=== PATIENT | male | born 1970 | race Caucasian/White ===

== ENCOUNTER 2017-04-28 12:16 | Emergency (ER) | payer BC ==
--- NOTE | 2017-04-28 14:29 | UC ---
General HPI - HPI Summary HPI Summary: Tick removed 24 hours ago that was likely attached for 24-36 hours attached to left side of his back - History of Current Complaint Chief Complaint: UCSkin Stated Complaint: TICK BITE Time Seen by Provider: 04/28/17 14:21 Hx Obtained From: Patient Onset/Duration: Sudden Onset, Lasting Days, Still Present Timing: Constant Onset Severity: Mild Current Severity: Mild - Allergy/Home Medications Allergies/Adverse Reactions: Allergies Allergy/AdvReac Type Severity Reaction Status Date / Time Banana AdvReac Intermediate Vomiting Verified 04/28/17 14:32 Home Medications: Home Medications Diazepam TAB(*) [Valium TAB(*)] 10 mg PO Q8H PRN 04/28/17 [History Confirmed ] Oxycodone TAB(NF) [Oxycodone HCl 10 MG] 10 mg PO Q6H PRN 04/28/17 [History Confirmed 04/28/17] PMH/Surg Hx/FS Hx/Imm Hx Previously Healthy: No Cardiovascular History: Hypertension Psychological History: Anxiety, Bipolar Disorder - Surgical History Surgical History: Yes Surgery Procedure, Year, and Place: ACL repair, fx skull - Family History Known Family History: Positive: None - Social History Occupation: Employed Full-time Lives: With Family Alcohol Use: Weekly Substance Use Type: Marijuana Substance Use Comment - Amount & Last Used: DAILY, LAST TIME 06/03 Smoking Status (MU): Never Smoked Tobacco When Did the Patient Quit Smoking/Using Tobacco: 20 YEARS AGO - Immunization History Most Recent Influenza Vaccination: none Most Recent Tetanus Shot: 2011 Most Recent Pneumonia Vaccination: none Review of Systems Constitutional: Negative Skin: Other - upper left posterior shoulder with partially removed tick Eyes: Negative ENT: Negative Respiratory: Negative Cardiovascular: Negative Gastrointestinal: Negative Genitourinary: Negative Motor: Negative Neurovascular: Negative Musculoskeletal: Negative Neurological: Negative Psychological: Negative Is Patient Immunocompromised?: No All Other Systems Reviewed And Are Negative: Yes Physical Exam Triage Information Reviewed: Yes Appearance: Well-Appearing, No Pain Distress, Well-Nourished Vital Signs Reviewed: Yes Eye Exam: Normal Eyes: Positive: Conjunctiva Clear ENT Exam: Normal ENT: Positive: Normal ENT inspection, Hearing grossly normal, Pharynx normal. Negative: Trismus, Muffled voice, Hoarse voice, Dental tenderness, Sinus tenderness Dental Exam: Normal Dental: Positive: Percussion Tenderness @ Neck exam: Normal Neck: Positive: Supple, Nontender, No Lymphadenopathy Respiratory Exam: Normal Respiratory: Positive: Chest non-tender, No respiratory distress, No accessory muscle use Cardiovascular Exam: Normal Cardiovascular: Positive: RRR, Pulses Normal, Brisk Capillary Refill Musculoskeletal Exam: Normal Musculoskeletal: Positive: Strength Intact, ROM Intact, No Edema Neurological Exam: Normal Neurological: Positive: Alert, Muscle Tone Normal Psychological Exam: Normal Skin Exam: Normal Course/Dx - Course Course Of Treatment: soap and water wash doxycycline times one dose now follow with pcp prn - Differential Dx - Multi-Symptom Provider Diagnoses: Tck Bite with Lyme PEP Discharge - Discharge Plan Condition: Stable Disposition: HOME Prescriptions: Doxycycline (Monohydrate) [Doxycycline Monohydrate] 200 mg PO ONCE #2 cap Patient Education Materials: Tick Bite (ED) Referrals: Martin Owens DO [Primary Care Provider] -
[2017-04-28 14:38] VITALS: BP 155/91
== END 2017-04-28 14:40 | disposition home or self-care (01) ==
LOC: UCCORT 12:16
DX: S20.462A Insect bite (nonvenomous) of left back wall of thorax, initial encounter (principal); W57.XXXA Bitten or stung by nonvenomous insect and other nonvenomous arthropods, initial encounter; Y93.9 Activity, unspecified; Y92.9 Unspecified place or not applicable; I10 Essential (primary) hypertension; F41.9 Anxiety disorder, unspecified; F31.9 Bipolar disorder, unspecified; F12.90 Cannabis use, unspecified, uncomplicated; Z87.891 Personal history of nicotine dependence
CPT/HCPCS: 99212; G0463

== ENCOUNTER 2017-06-19 11:33 | Emergency (ER) | payer BC ==
[2017-06-19 12:11] VITALS: BP 129/85
--- NOTE | 2017-06-19 12:57 | UC ---
Throat Pain/Nasal [place] HPI - HPI Summary HPI Summary: Pt presents with c/o sore throat X 5 days, no improvement since onset. Pt states that he feels like "garbage" - History of Current Complaint Chief Complaint: UCRespiratory Stated Complaint: SORE THROAT Time Seen by Provider: 06/19/17 12:13 Hx Obtained From: Patient Onset/Duration: Gradual Onset, Lasting Days, Still Present Severity: Moderate Pain Intensity: 0 Pain Scale Used: 0-10 Numeric Associated Signs & Symptoms: Positive: Dysphagia - Epiglottits Risk Factors Epiglottis Risk Factors: Negative - Allergies/Home Medications Allergies/Adverse Reactions: Allergies Allergy/AdvReac Type Severity Reaction Status Date / Time banana Allergy Vomiting Verified 06/19/17 12:03 Home Medications: Home Medications Atorvastatin* [Lipitor 10 MG*] 10 mg PO DAILY 06/19/17 [History Confirmed ] Levothyroxine TAB* [Synthroid 25 MCG TAB*] 25 mcg PO DAILY 06/19/17 [History Confirmed 06/19/17] Losartan TAB* [Cozaar TAB*] 25 mg PO DAILY 06/19/17 [History Confirmed 06/19/17] amLODIPine TAB* [Norvasc 5 mg TAB*] 10 mg PO DAILY 06/19/17 [History Confirmed 06/19/17] PMH/Surg Hx/FS Hx/Imm Hx Previously Healthy: Yes - Surgical History Surgical History: Yes Surgery Procedure, Year, and Place: ACL repair, fx skull - Family History Known Family History: Positive: None - Social History Occupation: Employed Full-time Lives: With Family Alcohol Use: Rare Substance Use Type: Marijuana Substance Use Comment - Amount & Last Used: DAILY, LAST TIME 06/03 Smoking Status (MU): Never Smoked Tobacco Have You Smoked in the Last Year: No When Did the Patient Quit Smoking/Using Tobacco: 20 YEARS AGO - Immunization History Most Recent Influenza Vaccination: none Most Recent Tetanus Shot: 2011 Most Recent Pneumonia Vaccination: none Review of Systems Constitutional: Fever, Chills, Fatigue Skin: Negative Eyes: Negative ENT: Sore Throat Respiratory: Negative Cardiovascular: Negative Gastrointestinal: Negative Genitourinary: Negative Motor: Negative Neurovascular: Negative Musculoskeletal: Negative Neurological: Negative Psychological: Negative Is Patient Immunocompromised?: No All Other Systems Reviewed And Are Negative: Yes Physical Exam Triage Information Reviewed: Yes Appearance: Ill-Appearing Vital Signs: Initial Vital Signs Temp 98.1 F 06/19/17 12:02 Pulse 79 06/19/17 12:02 Resp 16 06/19/17 12:02 BP 129/85 06/19/17 12:02 Pulse Ox 98 06/19/17 12:02 Vital Signs Reviewed: Yes Eye Exam: Normal ENT Exam: Other ENT: Positive: Pharyngeal erythema Dental Exam: Normal Neck exam: Normal Respiratory Exam: Normal Cardiovascular Exam: Normal Musculoskeletal Exam: Normal Neurological Exam: Normal Psychological Exam: Normal Skin Exam: Normal Throat Pain/Nasal Course/Dx - Differential Dx/Diagnosis Differential Diagnosis/HQI/PQRI: Influenza, Pharyngitis, Tonsillitis, URI Provider Diagnoses: Pharyngitis Discharge - Discharge Plan Condition: Stable Disposition: HOME Prescriptions: Penicillin VK 500 MG TAB(NF) [Penicillin VK 500 mg Tab] 500 mg PO Q12H #20 tab Patient Education Materials: Pharyngitis (ED) Referrals: Martin Owens DO [Primary Care Provider] - If Needed
== END 2017-06-19 12:46 | disposition home or self-care (01) ==
LOC: UCCORT 11:33
DX: J02.9 Acute pharyngitis, unspecified (principal)
CPT/HCPCS: 87651; 99212; G0463

== ENCOUNTER 2017-09-03 15:07 | Emergency (ER) | payer BC ==
--- OUTSIDE RECORDS SUMMARY | 2017-09-03 15:38 | XMS REPORT ---
:1970 External Reference #:[id number] Author Organization [facility] Address [address] [address] Phone [phone] Care Team Providers Name Role Phone Martin Owens DO Primary Care Physician Unavailable Payers Type Date Identification Numbers Payment Provider Subscriber Commercial Policy Number: [id number] [facility] Naya Salomon PayID: [id number] [address] [place] [id number] Problems Date Description Provider Status Onset: 04/19/2014 Low back pain Paulino Rouse M.D. Active Onset: 05/04/2014 Benign essential hypertension Active Onset: 05/04/2014 Pure hypercholesterolemia Active Onset: 05/04/2014 Peptic reflux disease Active Onset: 01/31/2012 Gastroesophageal reflux disease Martin Owens DO Active Onset: 01/31/2012 Mixed hyperlipidemia Martin Owens DO Active Onset: 01/31/2012 Essential hypertension Martin Owens DO Active Family History Date Family Member(s) Problem(s) Comments General Heart Disease General Hypertension General Stroke General Cancer General Rheumatoid Arthritis Father Stroke Father Rheumatoid Arthritis Mother Cancer Mother Rheumatoid Arthritis Social History Type Date Description 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 consumes alcohol Recreational Drug Use Current Drug User Smoking Patient has never smoked Recreational Drug Use Regularly uses Marijuana Exercise Type/Frequency Exercises sporadically Allergies, Adverse Reactions, Alerts Date Description Reaction Status Severity Comments 02/05/2014 NKDA active Medications Medication Date Status Form Strength Qnty SIG Indications Ordering Provider Levothyroxine 07/09/ Active Tablets 50mcg 90tab 1 by mouth Marsha Owens 2018 s every day DO Martin Diazepam 01/30/ Active Tablets 10mg 60tab /2 to 1 by Roman 2016 s mouth up to Martin, 2 times a DO day as needed muscle spasm Oxycodone HCL 01/22/ Active Tablets 10mg 180ta 1 by mouth Roman 2015 bs every 4 Martin, hours as DO needed severe pain Amlodipine 10/23/ Active Tablets 5mg 90tab 1 by mouth Roman Besylate 2015 s every day Martin, DO Losartan / Active Tablets 100mg 90tab 1 by mouth Unknown Potassium 0000 s every day Ventolin HFA / Active Aerosol 108(90Bas 1unit 2 puffs by Unknown 0000 e) s mouth four mcg/Act times a day as needed Omeprazole / Active Capsules 20mg 1 by mouth Unknown 0000 [address] every day as needed Ibuprofen / Active Capsules 200mg 2 po q 4 Unknown 0000 hours.as needed Tylenol / Active Tablets 325mg as needed Unknown 0000 Amphetamine-Dex / Active Caps ER 30mg [place], troamphet ER 0000 24HR MD Vasu Atorvastatin / Active Tablets 20mg take 1 Unknown Calcium 0000 tablet by mouth once daily Triamcinolone 12/29/ Hx Cream 0.1% 80uni apply to Roman Acetandrea 2015 - ts affected Martin, 07/23/ area on the DO 2017 trunk or extremities 2-3 times a day x 2 weeks Adderall 10/23/ Hx Tablets 5mg 60tab 1 po bid Roman 2015 - s Martin, 07/29/ DO 2018 Percocet / Hx Tablets 5-325mg 60tab 1-2 by mouth Unknown 0000 - s every 4 to 6 15/ hours as 2018 needed pain Valium / Hx Tablets 5mg 2tabs 1-2 po as Unknown 0000 - needed for 07/30/ spasm 2018 Atorvastatin / Hx Tablets 20mg 90tab take 1 Unknown Calcium 0000 - s tablet at 02/11/ bedtime 2013 Vital Signs Date Vital Result Comment 08/07/2017 Height 72 inches 6'0" Weight 170.00 lb Heart Rate 74 /min BP Systolic Sitting 122 mmHg BP Diastolic Sitting 74 mmHg Respiratory Rate 16 /min Pain Level 2 BMI (Body Mass Index) 23.1 kg/m2 04/19/2014 Height 72 inches 6'0" Weight 188.00 lb Heart Rate 76 /min BP Systolic Sitting 160 mmHg BP Diastolic Sitting 160 mmHg Pain Level 2 ack/mik hips BMI (Body Mass Index) 25.5 kg/m2 02/11/2014 Height 72 inches 6'0" Weight 186.00 lb Heart Rate 70 /min BP Systolic Sitting 130 mmHg BP Diastolic Sitting 80 mmHg Pain Level 0 BMI (Body Mass Index) 25.2 kg/m2 Results Test Date Test Result H/L Range Note CBC Auto Diff 06/15/2013 White Blood Count 6.9 10^3/uL 4.8-10.8 Red Blood Count 3.64 10^6/uL Low 4.0-5.4 Hemoglobin 8.6 g/dL Low 14.0-18.0 Hematocrit 28 % Low 42-52 Mean Corpuscular Volume 76 fL Low 80-94 Mean Corpuscular Hemoglobin 24 pg Low 27-31 Mean Corpuscular HGB Conc 31 g/dL 31-36 Red Cell Distribution Width 16 % High 10.5-15 Platelet Count 301 10^3/uL 150-450 Mean Platelet Volume 7 um3 Low 7.4-10.4 Abs Neutrophils 4.5 10^3/uL 1.5-7.7 Abs Lymphocytes 1.3 10^3/uL 1.0-4.8 Abs Monocytes 0.8 10^3/uL 0-0.8 Abs Eosinophils 0.2 10^3/uL 0-0.6 Abs Basophils 0.1 10^3/uL 0-0.2 Abs Nucleated RBC 0 10^3/uL Granulocyte % 65.6 % 38-83 Lymphocyte % 19.1 % Low 25-47 Monocyte % 11.5 % High 1-9 Eosinophil % 3.0 % 0-6 Basophil % 0.8 % 0-2 Nucleated Red Blood Cells % 0 Comp Metabolic Panel 06/15/2013 Sodium 135 mmol/L 133-145 Potassium 4.7 mmol/L 3.7-5.6 Chloride 102 mmol/L 101-111 Co2 Carbon Dioxide 27 mmol/L 22-32 Anion Gap 6 mmol/L 2-11 Glucose 81 mg/dL 70-100 Blood Urea Nitrogen 10 mg/dL 6-24 Creatinine 0.72 mg/dL 0.67-1.17 BUN/Creatinine Ratio 13.9 8-20 Calcium 9.3 mg/dL 8.6-10.3 Total Protein 6.8 g/dL 6.4-8.9 Albumin 4.3 g/dL 3.2-5.2 Globulin 2.5 g/dL 2-4 Albumin/Globulin Ratio 1.7 1-3 Total Bilirubin 0.40 mg/dL 0.2-1.0 Alkaline Phosphatase 62 U/L 34-104 Alt 28 U/L 7-52 Ast 22 U/L 13-39 Egfr Non- 118.1 >60 Egfr 151.8 >60 1 1 Because ethnic data is not always readily available, this report includes an eGFR for both -Americans and non- Americans. The National Kidney Disease Education Program (NKDEP) does not endorse the use of the MDRD equation for patients that are not between the ages of 18 and 70, are , have extremes of body size, muscle mass, or nutritional status, or are non- or non-. According to the National Kidney Foundation, irrespective of diagnosis, the stage of the disease is based on the level of kidney function: Stage Description GFR(mL/min/1.73 m(2)) 1 Kidney damage with normal or decreased GFR 90 2 Kidney damage with mild decrease in GFR 60-89 3 Moderate decrease in GFR 30-59 4 Severe decrease in GFR 15-29 5 Kidney failure <15 (or dialysis) Procedures Description No Information Encounters Type Date Location Provider CPT E/M Dx Office Visit 04/19/2014 [facility] Paulino Rouse M.D. 47702 724.2 9:00a Of [facility] Office Visit 02/11/2014 [facility] Paulino Rouse M.D. 79387 336.0 2:15p Of [facility] Office Visit 01/08/2013 Faisal Mcgraw,raheem Bush 12937 780.2 12:38p [facility] M.D. 847.2 280.9 401.9 Office Visit 01/07/2013 12:37p raheem Montelongo 92352 847.2 Chanel Cano M.D. 280.9 401.9 780.2 Plan of Care 08/07/2017 - Rudy Vera M.D.M72.2 Plantar fascial fibromatosisNew Xrays: MRI Lower Extremity Left W/OFollow up:after testing is completed
[2017-09-03 15:41] VITALS: BP 141/89
--- NOTE | 2017-09-03 15:47 | UC ---
UC General HPI - HPI Summary HPI Summary: pt is c/o a 3 day hx sore throat, cough, chest congestion and some sob. no fever. started to self tx with left over pcn for 2.5 days(has the full prescription). used an albuterol mdi with no relief. - History of Current Complaint Stated Complaint: FLU SYMPTOMS Time Seen by Provider: 09/03/17 15:39 Hx Obtained From: Patient Onset/Duration: Gradual Onset Timing: Constant Associated Signs & Symptoms: Positive: Cough, SOB. Negative: Fever - Allergy/Home Medications Allergies/Adverse Reactions: Allergies Allergy/AdvReac Type Severity Reaction Status Date / Time banana Allergy Vomiting Verified 09/03/17 15:37 PMH/Surg Hx/FS Hx/Imm Hx Endocrine History: Dyslipidemia Cardiovascular History: Hypertension - Surgical History Surgical History: Yes Surgery Procedure, Year, and Place: RT KNEE ACL AND MENISCUS REPAIR, fx skull, RT SHOULDER RTC REPAIR - Family History Known Family History: Positive: Cardiac Disease, Other - [place] - Social History Occupation: Employed Full-time Lives: With Family Alcohol Use: Rare Substance Use Type: Marijuana Substance Use Comment - Amount & Last Used: DAILY, LAST TIME 06/03 Smoking Status (MU): Never Smoked Tobacco Have You Smoked in the Last Year: No When Did the Patient Quit Smoking/Using Tobacco: 20 YEARS AGO - Immunization History Most Recent Influenza Vaccination: none Most Recent Tetanus Shot: 2011 Most Recent Pneumonia Vaccination: none Vaccination Up to Date: Yes Review of Systems Constitutional: Negative Skin: Negative Eyes: Negative ENT: Sore Throat Respiratory: Shortness Of Breath, Cough Cardiovascular: Negative Gastrointestinal: Negative Genitourinary: Negative Motor: Negative Neurovascular: Negative Musculoskeletal: Negative Neurological: Negative Psychological: Negative Is Patient Immunocompromised?: No All Other Systems Reviewed And Are Negative: Yes Physical Exam Triage Information Reviewed: Yes Appearance: Well-Appearing Vital Signs Reviewed: Yes Eyes: Positive: Conjunctiva Clear ENT: Positive: Pharyngeal erythema, TMs normal. Negative: Nasal congestion, Nasal drainage Neck: Positive: Supple, Tenderness @ - peritonsilar nodes with mild enlargement Respiratory: Positive: Lungs clear, No respiratory distress, Decreased breath sounds, Other: - cough is congested Cardiovascular: Positive: RRR, No Murmur Abdomen Description: Positive: Nontender, No Organomegaly, Soft Bowel Sounds: Positive: Present Musculoskeletal: Positive: ROM Intact Neurological: Positive: Alert Psychological: Positive: Age Appropriate Behavior Skin Exam: Normal Diagnostics - Radiology No standard instances Xray Interpretation: No Acute Changes Radiology Interpretation Completed By: Radiologist - CXR(see report) Course/Dx - Course Course Of Treatment: no strep screen, pt already took 2.5 days of pcn. cxr=no infiltrate. pt to finish the full course of his pcn prescription. script from for 10 days. - Differential Dx - Multi-Symptom Provider Diagnoses: pharyngitis. cough Discharge - Sign-Out/Discharge Documenting (check all that apply): Discharge/Admit/Transfer - Discharge Plan Condition: Stable Disposition: HOME Patient Education Materials: Pharyngitis (ED) Referrals: Martin Owens DO [Primary Care Provider] - 7 Days Additional Instructions: USE YOUR ALBUTEROL INHALER 2 PUFFS EVERY 6 HOURS. FINISH THE 10 DAY SUPPLY OF PENICILLIN - Billing Disposition and Condition Condition: STABLE Disposition: HOME
--- NOTE | 2017-09-03 16:33 | RAD ---
INDICATION: Productive cough, shortness of breath. History of obstructive lung disease. Former tobacco use. COMPARISON: June 04, 2013 TECHNIQUE: Dual energy PA and routine lateral views of the chest were obtained. REPORT: Elevated lung volumes and rarefaction of the interstitial markings. No focal pulmonary lesion, compelling alveolar consolidation, pleural effusion, pneumothorax. The heart, pulmonary vasculature, and mediastinal contours are unremarkable. Unremarkable soft tissue contours and osseous structures. IMPRESSION: Stigmata of obstructive lung disease. No acute pulmonary or cardiac process evident.
== END 2017-09-03 16:47 | disposition home or self-care (01) ==
LOC: UCCORT 15:07
DX: J02.9 Acute pharyngitis, unspecified (principal); R05 Cough; I10 Essential (primary) hypertension; Z87.891 Personal history of nicotine dependence
CPT/HCPCS: 71046; 99211; G0463

== ENCOUNTER 2017-09-11 17:51 | Emergency (ER) | payer BC ==
[2017-09-11 19:24] VITALS: BP 127/91
--- NOTE | 2017-09-11 19:41 | ED ---
Throat Pain/Nasal Congestion - HPI Summary HPI Summary: 47 yr old with sore throat, left ear pain, post nasal drip, sinus pressure. onset of symptoms over a week ago. He is having a productive cough of yellow sputum. Denies SOB. Denies NVD, dysuria, frequency, denies rash, joint pain. No other complaints. - History of Current Complaint Chief Complaint: UCGeneralIllness Time Seen by Provider: 09/11/17 19:26 - Allergies/Home Medications Allergies/Adverse Reactions: Allergies Allergy/AdvReac Type Severity Reaction Status Date / Time banana Allergy Vomiting Verified 09/11/17 19:12 PMH/Surg Hx/FS Hx/Imm Hx Endocrine/Hematology History: Reports: Hx Thyroid Disease, Hx Anemia - R/T RECENT ILLNESS Denies: Hx Diabetes Cardiovascular History: Reports: Hx Hypertension - MEDICATED Denies: Hx Pacemaker/ICD Respiratory History: Reports: Other Respiratory Problems/Disorders - RESCUE INHALER FOR EXERCISE INDUCED SOB Comment Only: Hx Asthma - INHALER FOR DECREASED LUNG FUNCTION- EX-SMOKER GI History: Reports: Hx Gastroesophageal Reflux Disease - CONTROL WITH MEDICATION Musculoskeletal History: Reports: Other Musculoskeletal History - HX OF COMPRESSED VERTEBRAE LOWER BACK Sensory History: Reports: Hx Contacts or Glasses - GLASSES Denies: Hx Hearing Aid Opthamlomology History: Reports: Hx Contacts or Glasses - GLASSES Neurological History: Reports: Other Neuro Impairments/Disorders - L-SPINE DISC TOUBLE Psychiatric History: Denies: Hx Panic Disorder - Surgical History Surgery Procedure, Year, and Place: RT KNEE ACL AND MENISCUS REPAIR, fx skull, RT SHOULDER RTC REPAIR Hx Anesthesia Reactions: No - Immunization History Date of Tetanus Vaccine: Unsure Date of Influenza Vaccine: no Infectious Disease History: No Infectious Disease History: Denies: Hx Clostridium Difficile, Hx Hepatitis, Hx Human Immunodeficiency Virus (HIV), Hx of Known/Suspected MRSA, Hx Shingles, Hx Tuberculosis, Hx Known/ Suspected VRE, Hx Known/Suspected VRSA, History Other Infectious Disease, Traveled Outside the [place] in Last 30 Days - Family History Known Family History: Positive: None, Cardiac Disease, Other - [place] - Social History Alcohol Use: Rare Substance Use Type: Reports: Marijuana Substance Use Comment - Amount & Last Used: OCCASIONAL Smoking Status (MU): Former Smoker Have You Smoked in the Last Year: No Review of Systems Constitutional: Negative Positive: Sore Throat, Ear Ache, Nasal Discharge Positive: Cough All Other Systems Reviewed And Are Negative: Yes Physical Exam Triage Information Reviewed: Yes Vital Signs On Initial Exam: Initial Vitals Temp Pulse Resp BP Pulse Ox 98.6 F 71 17 127/91 97 09/11/17 19:14 09/11/17 19:14 09/11/17 19:14 09/11/17 19:14 09/11/17 19:14 Vital Signs Reviewed: Yes Appearance: Positive: Well-Appearing, No Pain Distress Skin: Positive: Warm, Skin Color Reflects Adequate Perfusion Head/Face: Positive: Normal Head/Face Inspection Eyes: Positive: EOMI ENT: Positive: Normal ENT inspection, Pharyngeal erythema, TM red - left with effusion, Sinus tenderness Neck: Positive: Supple, Nontender Respiratory/Lung Sounds: Positive: Clear to Auscultation, Breath Sounds Present Cardiovascular: Positive: RRR. Negative: Murmur Abdomen Description: Positive: Nontender Musculoskeletal: Positive: Strength/ROM Intact Neurological: Positive: Sensory/Motor Intact, Alert, Oriented to Person Place, Time, CN Intact II-III Psychiatric: Positive: Normal - Delmy Coma Scale Best Eye Response: 4 - Spontaneous Best Motor Response: 6 - Obeys Commands Best Verbal Response: 5 - Oriented Coma Scale Total: 15 Diagnostics - Vital Signs Vital Signs Temp Pulse Resp BP Pulse Ox 09/11/17 19:14 98.6 F 71 17 127/91 97 - Laboratory Lab Statement: Any lab studies that have been ordered have been reviewed, and results considered in the medical decision making process. EENT Course/Dx - Course Course Of Treatment: 47 yr old with sinusitis and left OM. Rx with augmentin. DC home. - Diagnoses Provider Diagnoses: Sinusitis, Otitis media Discharge - Sign-Out/Discharge Documenting (check all that apply): Discharge/Admit/Transfer - Discharge Plan Condition: Good Disposition: HOME Prescriptions: Amoxicillin/Clavulanate TAB* [Augmentin TAB 875*] 875 mg PO BID #20 tab Patient Education Materials: Sinusitis (ED), Ear Infection (ED), Hypertension ( ED) Referrals: Martin Owens DO [Primary Care Provider] - 2 Days - Billing Disposition and Condition Condition: GOOD Disposition: HOME
== END 2017-09-11 19:45 | disposition home or self-care (01) ==
LOC: UCCORT 17:51
DX: J32.9 Chronic sinusitis, unspecified (principal); H66.92 Otitis media, unspecified, left ear; I10 Essential (primary) hypertension; J45.909 Unspecified asthma, uncomplicated; Z87.891 Personal history of nicotine dependence; K21.9 Gastro-esophageal reflux disease without esophagitis
CPT/HCPCS: 99212; G0463

== ENCOUNTER 2017-10-13 10:47 | Emergency (ER) | payer BC ==
--- OUTSIDE RECORDS SUMMARY | 2017-10-13 11:00 | XMS REPORT ---
:1970 External Reference #:[id number] Author Organization [facility] Address [address] [address] Phone [phone] Care Team Providers Name Role Phone Martin Owens DO Primary Care Physician Unavailable Payers Type Date Identification Numbers Payment Provider Subscriber Commercial Policy Number: [id number] [facility] Naya Salomon PayID: [id number] [address] [address] [place] [address] Problems Date Description Provider Status Onset: 04/19/2014 [...] Martin Diazepam 01/30/ Active Tablets 10mg 60tab 1/2 to 1 by Roman 2016 s mouth [...] po as Unknown 0000 - needed for spasm 2018 Atorvastatin / Hx Tablets 20mg 90tab take 1 Unknown Calcium 0000 - s tablet at 02/11/ bedtime 2013 Vital Signs Date Vital Result Comment 09/18/2017 Height 72 inches 6'0" Weight 170.00 lb BP Systolic Sitting 126 mmHg BP Diastolic Sitting 76 mmHg Respiratory Rate 16 /min Pain Level 3 BMI (Body Mass Index) 23.1 kg/m2 08/07/2017 Height 72 inches 6'0" Weight 170.00 [...] 5 Kidney failure <15 (or dialysis) Procedures Date CPT Code Description Status 08/27/2017 55634 MRI Lower Extremity W0 Contrast Completed 08/27/2017 68377 MRI Lower Extremity W0 Contrast Completed Encounters Type Date Location Provider CPT E/M Dx Office Visit 09/18/2017 [facility] Vera, 62439 M72.2 11:00a [facility] CAMILO Holden M.D. Office Visit 08/07/2017 [facility], 75386 M72.2 1:00p Obdulio Holden M.D. Office Visit 04/19/2014 [facility] Paulino Rouse M.D. 14766 724.2 9:00a Of [facility] Office Visit 02/11/2014 [facility] Paulino Rouse M.D. 93241 336.0 2:15p Of [facility] Paulino Bush [address] 780.2 12:38p Hospitalists Tristen Cano 847.2 280.9 401.9 Office Visit 01/07/2013 12:37p [facility], Paulino Bush [address]36 847.2 Hospitalists Tristen Cano 280.9 401.9 780.2 Plan of Care 09/18/2017 - Rudy Vera M.D.M72.2 Plantar fascial fibromatosisNew Therapy: Rehab ReferralFollow up:As needed
[2017-10-13 11:07] VITALS: BP 137/88
--- NOTE | 2017-10-13 11:54 | UC ---
Upper Extremity HPI - HPI Summary HPI Summary: Patient to urgent care today with pain in his right arm also complains of some numbness and tingling. 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 patient denies chest pain, sob, no neuro deficits. Patient usually take Oxycodone 10 mg po prn for pain and has not taken pain medication at all - History of Current Complaint Hx Obtained From: Patient ?: No Onset/Duration: Sudden Onset, Lasting Days - 1 Severity Currently: Mild Pain Intensity: 0 Location Of Pain: Radiates To - no real pain parestesia right arm Aggravating Factor(s): Movement Alleviating Factor(s): Nothing Associated Signs And Symptoms: Positive: Negative Related History: Dominant Hand Right <Lianna Bueno - Last Filed: 10/13/17 12:06> <Sissy Novak - Last Filed: 10/13/17 12:16> - History of Current Complaint Chief Complaint: UCUpperExtremity Stated Complaint: RIGHT ARM NUMBNESS Time Seen by Provider: 10/13/17 11:43 - Allergies/Home Medications Allergies/Adverse Reactions: Allergies Allergy/AdvReac Type Severity Reaction Status Date / Time banana Allergy Vomiting Verified 10/13/17 11:04 Home Medications: Home Medications Dextroamphetamine/Amphetamine [Adderall Xr 30 mg Capsule] 30 mg PO DAILY PRN 05/02 [History Confirmed 10/13/17] PMH/Surg Hx/FS Hx/Imm Hx Previously Healthy: No Endocrine History: Hypothyroidism, Dyslipidemia Cardiovascular History: Hypertension Psychological History: Anxiety - Surgical History Surgical History: Yes Surgery Procedure, Year, and Place: RT KNEE ACL AND MENISCUS REPAIR, fx skull, RT SHOULDER RTC REPAIR. COLON SURGERY (HEMMORHOIDS) - Family History Known Family History: Positive: None, Cardiac Disease, Other - CA, CVA - Social History Occupation: Works From/At Home Lives: With Family Alcohol Use: Rare Substance Use Type: Marijuana Substance Use Comment - Amount & Last Used: OCCASIONAL Smoking Status (MU): Former Smoker Have You Smoked in the Last Year: No When Did the Patient Quit Smoking/Using Tobacco: 30+ years ago - Immunization History Most Recent Influenza Vaccination: none Most Recent Tetanus Shot: 2011 Most Recent Pneumonia Vaccination: none Vaccination Up to Date: Yes <Lianna Bueno - Last Filed: 10/13/17 12:06> Review of Systems Constitutional: Negative Skin: Negative Eyes: Negative ENT: Negative Respiratory: Negative Cardiovascular: Negative Gastrointestinal: Negative Genitourinary: Negative Motor: Negative Neurovascular: Negative Musculoskeletal: Arthralgia - right arm Neurological: Negative Psychological: Negative Is Patient Immunocompromised?: No All Other Systems Reviewed And Are Negative: Yes <Lianna Bueno - Last Filed: 10/13/17 12:06> Physical Exam Triage Information Reviewed: Yes Appearance: Well-Appearing, No Pain Distress, Well-Nourished Vital Signs: Initial Vital Signs Temp 98.7 F 10/13/17 11:00 Pulse 69 10/13/17 11:00 Resp 16 10/13/17 11:00 BP 137/88 10/13/17 11:00 Pulse Ox 100 10/13/17 11:00 Vital Signs Reviewed: Yes Eye Exam: Normal Eyes: Positive: Conjunctiva Clear ENT Exam: Normal ENT: Positive: Normal ENT inspection, Hearing grossly normal, Pharynx normal, TMs normal. Negative: Nasal congestion, Trismus, Muffled voice, Hoarse voice, Dental tenderness Dental Exam: Normal Neck exam: Normal Neck: Positive: Supple, Nontender, No Lymphadenopathy, Other: - no carotid bruit Respiratory Exam: Normal Respiratory: Positive: Chest non-tender, Lungs clear, Normal breath sounds, No respiratory distress, No accessory muscle use Cardiovascular Exam: Normal Cardiovascular: Positive: RRR, No Murmur, Pulses Normal, Brisk Capillary Refill Musculoskeletal Exam: Normal Musculoskeletal: Positive: Strength Intact, ROM Intact, No Edema Neurological Exam: Normal Neurological: Positive: Alert, Muscle Tone Normal, Fatigued Psychological Exam: Normal Skin Exam: Normal <Lianna Bueno - Last Filed: 10/13/17 12:06> Vital Signs: Initial Vital Signs Temp 98.7 F 10/13/17 11:00 Pulse 69 10/13/17 11:00 Resp 16 10/13/17 11:00 BP 137/88 10/13/17 11:00 Pulse Ox 100 10/13/17 11:00 <Sissy Novak - Last Filed: 10/13/17 12:16> Diagnostics - EKG Cardiac Rate: NL Cardiac Rhythm: Sinus: Normal - early replol-no change from 2012 Ectopy: None ST Segment: Normal <Lianna Bueno - Last Filed: 10/13/17 12:06> Upper Extremity Course/Dx - Course Course Of Treatment: d/c to home take usual pain med, to ed for change or worsening in symptoms follow with pcp - Differential Dx/Diagnosis Provider Diagnoses: paresthesia right arm, <Lianna Bueno - Last Filed: 10/13/17 12:06> Discharge - Sign-Out/Discharge Documenting (check all that apply): Discharge/Admit/Transfer - Billing Disposition and Condition Condition: STABLE Disposition: Home <Lianna Bueno - Last Filed: 10/13/17 12:06> - Billing Disposition and Condition Condition: STABLE Disposition: Home <Sissy Novak - Last Filed: 10/13/17 12:16> - Discharge Plan Condition: Stable Disposition: HOME Patient Education Materials: Paresthesia (ED), Arthralgia (ED) Referrals: Martin Owens DO [Primary Care Provider] - 1 Week Attestation Statement User Type: Provider - I was available for consult. This patient was seen by the [facility]. The patient was not presented to, seen by, or examined by me. -Tejal <Sissy Novak - Last Filed: 10/13/17 12:16>
== END 2017-10-13 12:08 | disposition home or self-care (01) ==
LOC: UCCORT 10:47
DX: R20.0 Anesthesia of skin (principal); I10 Essential (primary) hypertension; Z87.891 Personal history of nicotine dependence
CPT/HCPCS: 93005; 99211; G0463

== ENCOUNTER 2018-03-23 11:32 | Emergency (ER) | payer BC ==
--- OUTSIDE RECORDS SUMMARY | 2018-03-23 11:55 | XMS REPORT | Continuity of Care Document ---
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 Payers Type Date Identification Numbers Payment Provider Subscriber Effective: Policy Number: [id number] [facility] [employer] [place] [employer] 2013 PayID: [id number] [address] [address] [place] [address] Advance Directives Description No Information Available Problems Date Description Provider Status Onset: 01/31/2012 Gastroesophageal reflux disease Martin Owens DO Active Onset: 01/31/2012 Mixed hyperlipidemia Martin Owens DO Active Onset: 01/31/2012 Essential hypertension Martin Owens DO Active Onset: 12/18/2011 Low back pain Martin Owens DO Active Onset: 05/04/2014 Benign essential hypertension Active Onset: 05/04/2014 Pure hypercholesterolemia Active Onset: 05/04/2014 Peptic reflux disease Active Onset: 12/18/2011 Alcohol dependence Martin Owens DO Resolved Resolved: 07/09/2017 Family History Date Family Member(s) Problem(s) Comments General Alcoholism General Drug Addiction Father CT : (age 84 Father due to Stroke Years) Father Heart Disease Father Hypertension Father Hypercholesterolemia Mother Thyroid Disease Mother due to Cancer, Bladder () Mother Depression Mother due to Cancer, Lung () Paternal Grandmother Stroke Social History Type Date Description Comments Sex Unknown Education Highest Level Completed Master's Degree Marital Status Lives With Spouse 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 Tobacco Use Start: Unknown End: Former Cigarette Smoker Unknown ETOH Use 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 consumes wine ETOH Use 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 consumes beer Recreational Drug Use Regularly uses Marijuana Tobacco Use Start: Unknown End: Patient is a former smoker Unknown Allergies, Adverse Reactions, Alerts Description No Known Drug Allergies Medications Medication Date Status Form Strength Qnty SIG Indications Ordering Provider Protonix 02/27 Active Tablets 40mg 90tab [address] s every day Martin, DO Amoxicillin/Cla 02/27 Hx Tablets 875-125mg 14tab 1 by mouth R10.30 Owens, vulanate s twice a day x Chapis Salazar - 7 days DO 03/06 Hydrocortisone 01/21 Active Cream 2.5% 30gm apply to rectal area Martin, 2-3 times a DO day as needed for hemorrhoids Sildenafil 01/08 Active Tablets 100mg 3tabs 04/16 to 1 by N52.9 Owens, Citrate mouth every Martin, day as needed DO Ventolin HFA 07/09 Active Aerosol 108(90Bas 1unit 2 puffs every e) s 4 hours as Martin mcg/Act needed DO Levothyroxine 07/09 Active Tablets 50mcg 90tab 1 by mouth Owens, Sodium s every day Martin, DO Diazepam 01/30 Active Tablets 10mg 60tab /2 to 1 by Owens s mouth up to 2 Martin, times a day as DO needed muscle spasm Oxycodone HCL 01/22 Active Tablets 10mg 180ta 1 by mouth bs every 4 hours Martin, as needed DO severe pain Triamcinolone 12/29 Active Cream 0.1% 80gm apply to Acet affected area Martin, on the trunk DO or extremities 2-3 times a day x 2 weeks Amlodipine 10/23 Active Tablets 5mg 90tab 1 by mouth Owens, Besylate s every day Martin, DO Adderall 10/23 Active Tablets 5mg 60tab 1 po bid as Owens s needed Martin, Atorvastatin 07/02 Active Tablets 20mg 90tab 1 by mouth Owens, Calcium s every day Martin, DO Losartan 10/02 Active Tablets 100mg 90tab 1 by mouth Owens, Potassium /2013 s every day Martin, DO Levothyroxine 05/05 Hx Tablets 25mcg 90tab 1 by mouth Owens, Sodium s every day Martin, - DO 07/09 Amoxicillin 10/05 Hx Tablets 875mg 20tab 1 by mouth J02.9 Owens, s twice a day Martin, - DO 10/15 Lamotrigine 09/13 Hx Tablets 25mg 120ta 2 by mouth I10 bs twice a day Martin, - DO 07/09 Duloxetine HCL 08/[address] 20mg 15cap 1 by mouth Owens, Part s every other Martin, - day x 1 week, DO 08/23 then every day for 1-2 weeks, then stop. Duloxetine HCL 07/[address] 60mg 30cap 1 by mouth F32.9 Owens, Part s every day Martin, - DO 08/03 Duloxetine HCL 04/[address] 30mg 30cap take one F32.9 Owens Part s capsule by Martin, - mouth every DO Cymbalta 04/[address] 30mg 30cap 1 by mouth F32.9 Owens, Part s every day Chandu Martin, - DO 04/23 Cymbalta 03/[address] 60mg 30cap 1 by mouth F32.9 Owens, Part s daily chandu Salazar, - DO 04/17 Azithromycin 03/05 Hx Tablets 250mg 6tabs 2 by mouth x 1, then 1 by Martin, - mouth daily x DO 03/10 Cymbalta 03/[address] 30mg 30cap 1 by mouth F32.9 Owens, Part s every day Martin, - DO 03/30 Voltaren 12/22 Hx Gel 1% 300gm apply 2 grams Owens transdermally Martin, - to the DO 01/19 shoulder every 6 hours as needed Oxycodone/Aceta 11/18 Hx Tablets 5-325mg 30tab take 1 tablet Roman, juan s by mouth every Martin, - 6 hours as DO 11/18 needed severe pain Oxycodone-Aceta 11/18 Hx Tablets 5-325mg 30tab 1 by mouth Roman, minophen s every 6 hours Martin, - as needed pain DO 01/22 Dicyclomine HCL 05/30 Hx Capsules 10mg 60cap 1 by mouth up R19.7 Owens, s to q 6 hours Martin, - as needed DO 03/12 abdominal /2016 pain/diarrhea Amlodipine 12/02 Hx Tablets 10mg 90tab 1 by mouth Owens, Besylate /2014 s every day Martin, - DO 10/23 Amlodipine 10/21 Hx Tablets 5mg 30tab 1 by mouth Owens, Besylate /2014 s every day Martin, - DO 12/02 Ventolin HFA 05/04 Hx Aerosol 108(90Bas 1unit 2 puffs every Owens, e) s 4 hours as Martin, - mcg/Act needed DO 01/15 Oxycodone/Aceta 01/07 Hx Tablets 5-325mg 30tab take 1 tablet Owens, minophen s by mouth every Martin, - 6 hours as DO 06/28 needed severe /2014 pain Diazepam 12/08 Hx Tablets 5mg 30tab 1-2 pills by Owens, /2013 s mouth as Martin, - needed for DO 01/30 spasm Atorvastatin 10/06 Hx Tablets 20mg 30tab 1 by mouth Owens, Calcium /2013 s every day Martin, - DO 05/04 Atorvastatin 10/06 Hx Tablets 20mg 30tab 1 by mouth Owens, Calcium /2013 s every day Martin, - DO 06/28 Ventolin HFA 09/17 Hx Aerosol 108mcg/Ac 1Unit 2 puffs by Owens, t s mouth every 4 Martin, - hours as DO 05/04 needed Ventolin HFA 05 Hx Aerosol 108mcg/Ac 1unit 2 puffs po q 4 Roman, t s hours prn Martin, - DO 06/28 Omeprazole 05/12 Hx Capsules 20mg 30cap 1 by mouth Roman, DR s every day as Martin, - needed DO 02/26 Acetaminophen 00/00 Hx Tablets 325mg 2 po qid prn Unknown /0000 - 09/28 Ibuprofen 00/00 Hx Tablets 200mg 2 po q 4 hours Unknown /0000 prn - 03/12 Immunizations CPT Code Status Date Vaccine Lot # [id number] Given 12/18/2011 Tdap (Adacel) Ages 7 And Above Only 00199 Refused 02/27/2018 Influenza Vac, 3 Yrs & Older, Quadrivalent, Split, Im Use Vital Signs Date Vital Result Comment 02/27/2018 11:30am Weight 183.00 lb Heart Rate 78 /min BP Systolic 130 mmHg BP Diastolic 84 mmHg Respiratory Rate 18 /min Height 71 inches 5'11" (02/2016) BMI (Body Mass Index) 25.5 kg/m2 01/08/2018 2:45pm Weight 184.00 lb Heart Rate 76 /min BP Systolic 116 mmHg BP Diastolic 84 mmHg Respiratory Rate 18 /min Height 71 inches 5'11" (02/2016) BMI (Body Mass Index) 25.7 kg/m2 11/18/2017 2:34pm Body Temperature 97.6 F Weight 183.00 lb Heart Rate 84 /min BP Systolic 118 mmHg BP Diastolic 76 mmHg Respiratory Rate 18 /min Height 71 inches 5'11" (02/2016) BMI (Body Mass Index) 25.5 kg/m2 07/09/2017 9:26am Weight 173.00 lb Heart Rate 80 /min BP Systolic 130 mmHg BP Diastolic 80 mmHg Respiratory Rate 18 /min Height 71 inches 5'11" (02/2016) BMI (Body Mass Index) 24.1 kg/m2 03/28/2017 3:38pm Weight 171.00 lb Heart Rate 72 /min BP Systolic 156 mmHg BP Diastolic 90 mmHg Respiratory Rate 18 /min Height 71 inches 5'11" (02/2016) BMI (Body Mass Index) 23.8 kg/m2 01/15/2017 9:02am Weight 167.00 lb Heart Rate 88 /min BP Systolic 130 mmHg BP Diastolic 86 mmHg Respiratory Rate 18 /min Height 71 inches 5'11" (02/2016) BMI (Body Mass Index) 23.3 kg/m2 11/26/2016 1:01pm Weight 165.00 lb Heart Rate 86 /min BP Systolic 136 mmHg BP Diastolic 82 mmHg Respiratory Rate 18 /min Height 71 inches 5'11" (02/2016) BMI (Body Mass Index) 23.0 kg/m2 10/05/2016 4:01pm Body Temperature 98.9 F Weight 161.00 lb Heart Rate 102 /min BP Systolic 156 mmHg BP Diastolic 94 mmHg Respiratory Rate 18 /min Height 71 inches 5'11" (02/2016) O2 % BldC Oximetry 98 % BMI (Body Mass Index) 22.5 kg/m2 09/13/2016 10:39am Weight 164.00 lb Heart Rate 86 /min BP Systolic 122 mmHg BP Diastolic 84 mmHg Respiratory Rate 18 /min Height 71 inches 5'11" (02/2016) BMI (Body Mass Index) 22.9 kg/m2 08/03/2016 11:46am Weight 161.00 lb Heart Rate 72 /min BP Systolic 138 mmHg BP Diastolic 96 mmHg Respiratory Rate 18 /min Height 71 inches 5'11" (02/2016) BMI (Body Mass Index) 22.5 kg/m2 05/28/2016 2:10pm Weight 162.00 lb Heart Rate 84 /min BP Systolic 128 mmHg BP Diastolic 82 mmHg Respiratory Rate 18 /min Height 71 inches 5'11" (02/2016) BMI (Body Mass Index) 22.6 kg/m2 03/12/2016 1:50pm Weight 157.00 lb Heart Rate 88 /min BP Systolic 138 mmHg BP Diastolic 86 mmHg Respiratory Rate 18 /min Height 71 inches 5'11" (02/2016) BMI (Body Mass Index) 21.9 kg/m2 03/02/2016 1:55pm Body Temperature 98.6 F Weight 161.00 lb Heart Rate 104 /min BP Systolic 138 mmHg BP Diastolic 70 mmHg Respiratory Rate 18 /min Height 71 inches 5'11" O2 % BldC Oximetry 97 % BMI (Body Mass Index) 22.5 kg/m2 01/20/2016 3:01pm Weight 165.00 lb Heart Rate 80 /min BP Systolic 178 mmHg BP Diastolic 92 mmHg Respiratory Rate 18 /min Height 71 inches 5'11" BMI (Body Mass Index) 23.0 kg/m2 11/09/2015 2:44pm Weight 165.00 lb Heart Rate 80 /min BP Systolic 130 mmHg BP Diastolic 84 mmHg Respiratory Rate 12 /min 10/24/2015 2:23pm Weight 166.00 lb Heart Rate 84 /min BP Systolic 120 mmHg BP Diastolic 86 mmHg Respiratory Rate 18 /min Height 71 inches 5'11" BMI (Body Mass Index) 23.1 kg/m2 07/11/2015 1:15pm Weight 181.00 lb Heart Rate 84 /min BP Systolic 138 mmHg BP Diastolic 90 mmHg Respiratory Rate 18 /min Height 71 inches 5'11" BMI (Body Mass Index) 25.2 kg/m2 05/30/2015 3:22pm Weight 194.00 lb Heart Rate 104 /min BP Systolic 174 mmHg BP Diastolic 102 mmHg BP Systolic Recheck 152 mmHg BP Diastolic Recheck 82 mmHg Respiratory Rate 18 /min Height 71 inches 5'11" BMI (Body Mass Index) 27.1 kg/m2 04/25/2015 2:37pm Weight 192.00 lb Heart Rate 84 /min BP Systolic 150 mmHg BP Diastolic 88 mmHg Respiratory Rate 18 /min Height 71 inches 5'11" BMI (Body Mass Index) 26.8 kg/m2 12/02/2014 8:32am Weight 194.00 lb Heart Rate 80 /min BP Systolic 154 mmHg BP Diastolic 98 mmHg Respiratory Rate 19 /min Height 71 inches 5'11" BMI (Body Mass Index) 27.1 kg/m2 09/28/2014 9:48am Weight 190.00 lb Heart Rate 80 /min BP Systolic 166 mmHg BP Diastolic 106 mmHg BP Systolic Recheck 146 mmHg BP Diastolic Recheck 102 mmHg Respiratory Rate 18 /min Height 71 inches 5'11" BMI (Body Mass Index) 26.5 kg/m2 06/28/2014 3:22pm Weight 188.00 lb Heart Rate 100 /min BP Systolic 164 mmHg BP Diastolic 84 mmHg BP Systolic Recheck 146 mmHg BP Diastolic Recheck 98 mmHg Respiratory Rate 18 /min Height 71 inches 5'11" BMI (Body Mass Index) 26.2 kg/m2 05/04/2014 11:26am Weight 187.00 lb Heart Rate 68 /min BP Systolic 154 mmHg BP Diastolic 98 mmHg Respiratory Rate 18 /min Height 71 inches 5'11" BMI (Body Mass Index) 26.1 kg/m2 02/03/2014 2:16pm Weight 185.00 lb Heart Rate 84 /min BP Systolic 130 mmHg BP Diastolic 96 mmHg Respiratory Rate 18 /min Height 71 inches 5'11" 12/08/2013 10:40am Weight 178.00 lb Heart Rate 84 /min BP Systolic 136 mmHg BP Diastolic 96 mmHg Respiratory Rate 18 /min Height 71 inches 5'11" 10/02/2013 10:38am BP Systolic 152 mmHg BP Diastolic 102 mmHg 10/02/2013 10:38am Weight 176.00 lb Heart Rate 78 /min BP Systolic 158 mmHg BP Diastolic 106 mmHg Respiratory Rate 18 /min Height 71 inches 5'11" 06/03/2013 3:12pm Body Temperature 97.9 F Weight 182.00 lb Heart Rate 88 /min BP Systolic 140 mmHg BP Diastolic 76 mmHg Respiratory Rate 18 /min O2 % BldC Oximetry 98 % 05/28/2013 2:55pm Body Temperature 98.1 F Weight 183.00 lb Heart Rate 88 /min BP Systolic 140 mmHg BP Diastolic 90 mmHg O2 % BldC Oximetry 95 % 05/12/2013 2:58pm Weight 182.00 lb Heart Rate 74 /min BP Systolic 138 mmHg BP Diastolic 88 mmHg Respiratory Rate 18 /min 03/27/2013 1:03pm Weight 187.00 lb Heart Rate 80 /min BP Systolic 148 mmHg BP Diastolic 92 mmHg Respiratory Rate 18 /min 01/14/2013 10:53am Body Temperature 98.1 F Weight 175.00 lb Heart Rate 98 /min BP Systolic 172 mmHg BP Diastolic 96 mmHg Respiratory Rate 19 /min 01/12/2013 10:40am Weight 174.00 lb Heart Rate 92 /min BP Systolic 150 mmHg BP Diastolic 94 mmHg Respiratory Rate 18 /min 09/17/2012 8:02am Weight 172.00 lb Down 10# Heart Rate 74 /min BP Systolic 132 mmHg BP Diastolic 78 mmHg Respiratory Rate 18 /min 05/13/2012 9:44am BP Systolic 142 mmHg BP Diastolic 84 mmHg 05/13/2012 9:44am Body Temperature 97.9 F Weight 182.00 lb Heart Rate 80 /min BP Systolic 148 mmHg BP Diastolic 92 mmHg Respiratory Rate 18 /min Height 71 inches 5'11" O2 % BldC Oximetry 96 % 03/26/2012 1:35pm Weight 181.25 lb Heart Rate 74 /min BP Systolic 140 mmHg BP Diastolic 92 mmHg Respiratory Rate 18 /min Height 71 inches 5'11" 03/18/2012 9:30am Body Temperature 97.2 F Weight 180.06 lb Heart Rate 72 /min BP Systolic 130 mmHg BP Diastolic 90 mmHg Respiratory Rate 17 /min 02/14/2012 10:21am BP Systolic 128 mmHg BP Diastolic 88 mmHg 02/14/2012 10:21am Weight 180.19 lb Heart Rate 70 /min BP Systolic 122 mmHg BP Diastolic 70 mmHg Respiratory Rate 16 /min 02/07/2012 8:29am Weight 177.00 lb Heart Rate 72 /min BP Systolic 130 mmHg BP Diastolic 80 mmHg Respiratory Rate 18 /min 01/31/2012 3:18pm BP Systolic 152 mmHg BP Diastolic 102 mmHg 01/31/2012 3:18pm Weight 177.06 lb Heart Rate 82 /min BP Systolic 180 mmHg BP Diastolic 88 mmHg Respiratory Rate 17 /min Height 71 inches 5'11" 12/24/2011 4:23pm BP Systolic 136 mmHg BP Diastolic 102 mmHg 12/24/2011 4:23pm Weight 175.00 lb Heart Rate 78 /min BP Systolic 142 mmHg BP Diastolic 102 mmHg Respiratory Rate 17 /min Height 71 inches 5'11" 12/18/2011 10:27am Weight 175.19 lb Heart Rate 80 /min BP Systolic 130 mmHg BP Diastolic 92 mmHg Respiratory Rate 16 /min Height 71 inches 5'11" Results Test Date Facility Test Result H/L Range Note Laboratory test finding 02/27/2018 [facility] TSH <pending> Free T4 <pending> T3 Total-rl <pending> Laboratory test finding 02/27/2018 [facility] CRP (C-Reactive) <pending> Amylase <pending> Lipase <pending> Ua RFX Micro & 01/06/2018 [facility] Urine Color YELLOW Yellow 1 Culture II (315)- - Urine Clarity CLEAR Clear Urine Glucose - Dipstick NEGATIVE mg/dL Negative Urine Bilirubin - Dipstick NEGATIVE Negative Urine Ketone NEGATIVE mg/dL Negative Urine Specific Walker 1.025 N 1.010-1.030 Urine Blood NEGATIVE Negative Urine PH 6.0 Low 6.5-7.5 Urine Protein - Dipstick NEGATIVE mg/dL Negative Urine Urobilinogen - Dipstick 0.2 E.U./dL N 0.2-1.0 Urine Nitrite - Dipstick NEGATIVE Negative Urine Leuk Esterase NEGATIVE Negative Source: URINE, CLEAN CAT <SEE NOTE> 2 CBS W/Automated Diff 01/06/2018 [facility] White Blood 5.9 K/uL N 3.4-10.5 (315)- - Count Red Blood Count 3.95 M/uL Low 4.20-5.80 Hemoglobin 11.8 gm/dL Low 12.8-17.0 Hematocrit 33.9 % Low 38.0-48.0 Mean Cell Volume 85.8 fl N 80.0-96.0 Mean Corpuscular HGB 29.9 pg N 27.0-33.0 Mean Corpuscular HGB Conc 34.8 g/dL N 31.7-36.0 Platelet Count 312 K/uL N 155-360 Red Cell Distri Width SD 36.7 fl N 36-51 Red Cell Distri Width %CV 12.3 % N 11.6-15.8 Mean Platelet Volume 9.6 fL N 6.6-10.6 Neut% 49.8 % N 33.0-73.0 Lymph % 35.4 % N 20.0-42.0 [place] % 10.4 % High 0.0-10.0 Eo% 3.9 % N 0.0-6.6 Bas% 0.5 % N 0.0-1.1 Neut# 2.96 K/uL N 1.8-7.0 Lymph # 2.10 K/uL N 1.0-4.0 [place] # 0.62 K/uL N 0.0-0.8 Eos # 0.23 K/uL N 0.0-0.5 Baso # 0.03 K/uL N 0.0-0.1 Comprehensive Metabolic 01/06/2018 [facility] Glucose 137 mg/dL High 74-106 Panel (315)- - BUN 18 mg/dL N 7-18 Creatinine 0.7 mg/dL N 0.6-1.3 Glom Filtration Rate, Estimate >60 mL/min >60 If >60 mL/min >60 3 BUN/Creat 25.7 ratio Sodium 141 mmol/L N 136-145 Potassium 4.0 mmol/L N 3.5-5.1 Chloride 105 mmol/L N 98-107 Carbon Dioxide 28 mmol/L N 21-32 Anion Gap 8 mEq/L N 8-16 Calcium 8.4 mg/dL Low 8.5-10.1 Total Protein 7.1 g/dL N 6.4-8.2 Albumin 3.8 g/dL N 3.4-5.0 Globulin 3.3 g/dL N 1.9-4.3 Alb/Glob 1.2 ratio Bilirubin,Total 0.3 mg/dL N 0.2-1.0 Sgot/Ast 27 U/L N 15-37 SGPT/Alt 39 U/L N 12-78 Alkaline Phosphatase 71 U/L N 45-117 Laboratory test 01/06/2018 [facility] Lipase 119 U/L N 56-289 finding (315)- - Laboratory test 01/06/2018 [facility] Occult NEGATIVE Negative 4 finding (315)- - Blood,Stool Laboratory test 11/14/2017 [facility] TSH 1.94 uIU/mL 0.35-4.94 finding Free T4 0.94 ng/dL 0.70-1.48 T3 Total 1.1 ng/mL (0.7-1.9) 5 Laboratory test finding 07/02/2017 [facility] T3 Total 1.0 ng/mL (0.7-1.9) 6 Free T4 0.87 ng/dL 0.70-1.48 Lipid Treatment 07/02/2017 [facility] Cholesterol 207 mg/dL High 50-199 Triglycerides 99 mg/dL 30-200 HDL 86 mg/dL High 29-71 7 Chol/ HDL Ratio 2.4 ratio Low 4.0-6.7 VLDL 20 mg/dL 2-29 LDL (Calc) 101 mg/dL High 20-99 8 Alt 25 U/L 3-42 Ast 22 U/L 8-42 Laboratory test finding 07/02/2017 [facility] TSH 2.19 uIU/mL 0.35-4.94 Basic (BMP) 07/02/2017 [facility] Sodium 143 mmol/L 135-146 9 Potassium 4.7 mmol/L 3.5-5.2 Chloride# 107 mmol/L 97-110 10 Carbon Dioxide 27 mmol/L 24-34 Glucose 95 mg/dL 70-105 BUN 9 mg/dL 6-26 Creatinine 0.7 mg/dL 0.5-1.4 Calcium 9.6 mg/dL 8.5-10.2 Non Ally Egfr >60 >60 11 Ally Egfr >60 >60 12 Anion Gap 9 mmol/L 5-15 13 CBC With Auto Diff 07/02/2017 [facility] WBC 6.4 K/uL 4.1-11.0 RBC 5.17 M/uL 4.60-6.10 Hemoglobin 13.3 gm/dL Low 13.5-18.0 Hematocrit 40.7 % Low 41.0-53.0 MCV 78.8 fL Low 80.0-97.0 MCH 25.8 pg Low 27.0-32.0 MCHC 32.8 g/dL 32.0-36.0 RDW 15.0 % High 11.5-14.5 PLT Count 304 K/ul 140-400 MPV 7.7 FL 7.1-10.7 Neutrophil 56.1 % 35.0-75.0 Lymphocyte 26.8 % 16.0-52.0 Monocyte 12.1 % High 2.0-10.0 Eosinophil 4.1 % 0.0-5.0 Basophil 0.9 % 0.0-4.0 Abs Neutrophils 3.6 K/uL 2.1-8.0 Abs Lymphocytes 1.7 K/uL 0.8-5.5 Abs Monocytes 0.8 K/uL 0.1-1.0 Abs Eosinophils 0.3 K/uL 0.0-0.5 Abs Basophils 0.1 K/uL 0.0-0.3 Laboratory test finding 04/02/2017 [facility] TSH 2.57 uIU/mL 0.35-4.94 Free T4 0.86 ng/dL 0.70-1.48 T3,Free 2.26 pg/mL 1.71-3.71 Thyroid Peroxidase Antibody <4.00 IU/mL 0.00-25.00 14 Thyroglobulin AutoAB <12.00 IU/mL 0.00-40.00 15 CRP (C-Reactive) 0.06 mg/dL 0.00-0.75 [facility] A1c 5.5 % 4.1-5.9 Estimated Average Glucose Calc 111 mg/dL 71-140 Laboratory test finding 04/02/2017 [facility] Vit D25oh 44 ng/mL 31-100 Laboratory test finding 04/02[facility]2017 [facility] Reverse T3 13.1 16 Insulin 5.5 mU/L (1.9-23.0) 17 Vit D 1 25 Dihydroxy 63.1 18 Homocysteine 5.6 umol/L (5.0-18.0) 19 CBC With Auto Diff 11/19/2016 [facility] WBC 6.3 K/uL 4.1-11.0 RBC 5.03 M/uL 4.60-6.10 Hemoglobin 11.9 gm/dL Low 13.5-18.0 Hematocrit 37.4 % Low 41.0-53.0 MCV 74.3 fL Low 80.0-97.0 MCH 23.7 pg Low 27.0-32.0 MCHC 31.8 g/dL Low 32.0-36.0 RDW 15.7 % High 11.5-14.5 PLT Count 319 K/ul 140-400 Neutrophil 50.5 % 35.0-75.0 Lymphocyte 32.1 % 16.0-52.0 Monocyte 13.1 % High 2.0-10.0 Eosinophil 3.1 % 0.0-5.0 Basophil 1.2 % 0.0-4.0 Abs Neutrophils 3.2 K/uL 2.1-8.0 Abs Lymphocytes 2.0 K/uL 0.8-5.5 Abs Monocytes 0.8 K/uL 0.1-1.0 Abs Eosinophils 0.2 K/uL 0.0-0.5 Abs Basophils 0.1 K/uL 0.0-0.3 Basic (BMP) 11/19/2016 [facility] Sodium 141 mmol/L 135-146 20 Potassium 4.6 mmol/L 3.5-5.2 Chloride# 104 mmol/L 97-110 21 Carbon Dioxide 29 mmol/L 24-34 Glucose 89 mg/dL 70-105 BUN 23 mg/dL 6-26 Creatinine 1.0 mg/dL 0.5-1.4 Calcium 9.5 mg/dL 8.5-10.2 Non Ally Egfr >60 >60 22 Ally Egfr >60 >60 23 Anion Gap 8 mmol/L 7-16 24 Laboratory test finding 11/19/2016 [facility] TSH 2.77 uIU/mL 0.35-4.94 Lipid Treatment 11/19/2016 [facility] Cholesterol 194 mg/dL 50-199 Triglycerides 82 mg/dL 30-200 HDL 75 mg/dL High 29-71 25 Chol/ HDL Ratio 2.6 ratio Low 4.0-6.7 VLDL 16 mg/dL 2-29 LDL (Calc) 103 mg/dL High 20-99 26 Alt 19 U/L 3-42 Ast 21 U/L 8-42 Lyme Igm/Igg AB -RL 08/03/2016 [facility] Lyme Igm/Igg AB @ NEGATIVE (Neg) 27 CBC With Auto Diff 08/03/2016 [facility] WBC 5.0 K/uL 4.1-11.0 RBC 4.76 M/uL 4.60-6.10 Hemoglobin 11.0 gm/dL Low 13.5-18.0 Hematocrit 34.7 % Low 41.0-53.0 MCV 73.0 fL Low 80.0-97.0 MCH 23.1 pg Low 27.0-32.0 MCHC 31.7 g/dL Low 32.0-36.0 RDW 16.4 % High 11.5-14.5 PLT Count 333 K/ul 140-400 Neutrophil 49.2 % 35.0-75.0 Lymphocyte 34.4 % 16.0-52.0 Monocyte 12.8 % High 2.0-10.0 Eosinophil 2.9 % 0.0-5.0 Basophil 0.7 % 0.0-4.0 Abs Neutrophils 2.4 K/uL 2.1-8.0 Abs Lymphocytes 1.7 K/uL 0.8-5.5 Abs Monocytes 0.6 K/uL 0.1-1.0 Abs Eosinophils 0.1 K/uL 0.0-0.5 Abs Basophils 0.0 K/uL 0.0-0.3 Laboratory test finding 08/03/2016 [facility] CRP (C-Reactive) 0.08 mg/dL 0.00-0.75 Esr 13 mm/hr 0-15 Rheumatoid Factor <10.0 IU/mL 0.0-10.0 Ros Screen With Reflex-FCMG 08/03/2016 [facility] Ros Screen NEGATIVE dsDNA IgG NEGATIVE Laboratory test finding 08/03/2016 [facility] TSH 1.01 uIU/mL 0.35-4.94 Laboratory test finding 03/12/2016 [facility] TSH 1.58 uIU/mL 0.35-4.94 Vitamin B12 632 pg/mL 180-914 Comprehensive Metabolic (CMP) 03/12/2016 [facility] Sodium 136 mmol/L 134- 142 Potassium 5.0 mmol/L 3.5-5.2 Chloride 100 mmol/L 97-109 Carbon Dioxide 29 mmol/L 24-34 Glucose 82 mg/dL 70-105 BUN 14 mg/dL 6-26 Creatinine 0.7 mg/dL 0.5-1.4 Calcium 10.1 mg/dL 8.5-10.2 Total Protein 6.8 g/dL 6.0-8.0 Albumin 4.4 g/dL 3.6-4.9 Globulin 2.4 g/dL 2.0-3.5 A/G Ratio 1.8 Ratio 1.0-2.2 Total Bilirubin 0.6 mg/dL 0.1-1.3 Alkaline Phosphatase 75 U/L 24-140 Alt 16 U/L 3-42 Ast 17 U/L 8-42 Anion Gap 12 mmol/L 6-14 Ally Egfr >60 >60 28 Non Ally Egfr >60 >60 29 CBC With Auto Diff 03/12/2016 [facility] WBC 5.6 K/uL 4.1-11.0 RBC 4.78 M/uL 4.60-6.10 Hemoglobin 12.6 gm/dL Low 13.5-18.0 Hematocrit 37.6 % Low 41.0-53.0 MCV 78.8 fL Low 80.0-97.0 MCH 26.3 pg Low 27.0-32.0 MCHC 33.4 g/dL 32.0-36.0 RDW 15.9 % High 11.5-14.5 PLT Count 464 K/ul High 140-400 Neutrophil 54.8 % 35.0-75.0 Lymphocyte 32.5 % 16.0-52.0 Monocyte 9.6 % 2.0-10.0 Eosinophil 2.1 % 0.0-5.0 Basophil 1.0 % 0.0-4.0 Abs Neutrophils 3.1 K/uL 2.1-8.0 Abs Lymphocytes 1.8 K/uL 0.8-5.5 Abs Monocytes 0.5 K/uL 0.1-1.0 Abs Eosinophils 0.1 K/uL 0.0-0.5 Abs Basophils 0.1 K/uL 0.0-0.3 Laboratory test 07/12/2015 [facility] Total Testosterone 360 ng/dL 285-950 30 finding Adult Male CRP (C-Reactive) 0.10 mg/dL 0.00-0.75 Esr 16 mm/hr High 0-15 Uric Acid 4.9 mg/dL 2.6-8.4 Laboratory test finding 05/30/2015 [facility] CRP (C-Reactive) 0.06 mg/dL 0.00-0.75 TSH 1.67 uIU/mL 0.35-4.94 Amylase 67 U/L 29-103 Lipase 59 U/L 11-82 Serotonin 305 ng/mL High (50-220) 31 Comprehensive Metabolic (CMP) 05/30/2015 [facility] Sodium 137 mmol/L 134- 142 Potassium 4.8 mmol/L 3.5-5.2 Chloride 101 mmol/L 97-109 Carbon Dioxide 30 mmol/L 24-34 Glucose 95 mg/dL 70-105 BUN 13 mg/dL 6-26 Creatinine 0.8 mg/dL 0.5-1.4 Calcium 9.7 mg/dL 8.5-10.2 Total Protein 7.5 g/dL 6.0-8.0 Albumin 4.5 g/dL 3.6-4.9 Globulin 3.0 g/dL 2.0-3.5 A/G Ratio 1.5 Ratio 1.0-2.2 Total Bilirubin 0.3 mg/dL 0.1-1.3 Alkaline Phosphatase 82 U/L 24-140 Alt 44 U/L High 3-42 Ast 34 U/L 8-42 Anion Gap 11 mmol/L 6-14 Ally Egfr >60 >60 32 Non Ally Egfr >60 >60 33 CBC With Auto Diff 05/30/2015 [facility] WBC 6.5 K/uL 4.1-11.0 RBC 5.13 M/uL 4.60-6.10 Hemoglobin 10.7 gm/dL Low 13.5-18.0 Hematocrit 35.4 % Low 41.0-53.0 MCV 69.0 fL Low 80.0-97.0 MCH 20.9 pg Low 27.0-32.0 MCHC 30.2 g/dL Low 32.0-36.0 RDW 16.4 % High 11.5-14.5 PLT Count 380 K/ul 140-400 Neutrophil 62.7 % 35.0-75.0 Lymphocyte 22.3 % 16.0-52.0 Monocyte 11.4 % High 2.0-10.0 Eosinophil 2.4 % 0.0-5.0 Basophil 1.2 % 0.0-4.0 Abs Neutrophils 4.1 K/uL 2.1-8.0 Abs Lymphocytes 1.4 K/uL 0.8-5.5 Abmon 0.7 K/uL 0.1-1.0 Abs Eosinophils 0.2 K/uL 0.0-0.5 Abs Basophils 0.1 K/uL 0.0-0.3 CBC With Auto Diff 09/28/2014 [facility] WBC 4.1 K/uL 4.1-11.0 RBC 4.47 M/uL Low 4.60-6.10 Hemoglobin 10.5 gm/dL Low 13.5-18.0 Hematocrit 33.6 % Low 41.0-53.0 MCV 75.2 fL Low 80.0-97.0 MCH 23.5 pg Low 27.0-32.0 MCHC 31.3 g/dL Low 32.0-36.0 RDW 15.2 % High 11.5-14.5 PLT Count 323 K/ul 140-400 Neutrophil 45.6 % 35.0-75.0 Lymphocyte 33.8 % 16.0-52.0 Monocyte 14.5 % High 2.0-10.0 Eosinophil 4.6 % 0.0-5.0 Basophil 1.5 % 0.0-4.0 Abs Neutrophils 1.9 K/uL Low 2.1-8.0 Abs Lymphocytes 1.4 K/uL 0.8-5.5 Abmon 0.6 K/uL 0.1-1.0 Abs Eosinophils 0.2 K/uL 0.0-0.5 Abs Basophils 0.1 K/uL 0.0-0.3 Basic (BMP) 09/28/2014 [facility] Sodium 137 mmol/L 134-142 Potassium 4.7 mmol/L 3.5-5.2 Chloride 103 mmol/L 97-109 Carbon Dioxide 31 mmol/L 24-34 Glucose 89 mg/dL 70-105 BUN 11 mg/dL 6-26 Creatinine 0.7 mg/dL 0.5-1.4 Calcium 9.4 mg/dL 8.5-10.2 Anion Gap 8 mmol/L 6-14 Non Ally Egfr >60 >60 34 Ally Egfr >60 >60 35 Laboratory test finding 09/28/2014 [facility] TSH 2.98 uIU/mL 0.35-4.94 Lipid 09/28/2014 [facility] Cholesterol 247 mg/dL High 50-199 Triglycerides 180 mg/dL 30-200 HDL 68 mg/dL 29-71 36 Chol/ HDL Ratio 3.6 ratio Low 4.0-6.7 VLDL 36 mg/dL High 2-29 LDL (Calc) 143 mg/dL High 20-99 37 Hepatic Panel (LFT) 09/28/2014 [facility] Total Protein 7.1 g/dL 6.0-8.0 Albumin 4.4 g/dL 3.6-4.9 Total Bilirubin 0.4 mg/dL 0.1-1.3 Direct Bilirubin 0.1 mg/dL 0.0-0.4 Alkaline Phosphatase 69 U/L 24-140 Alt 38 U/L 3-42 Ast 33 U/L 8-42 Laboratory test finding 09/28/2014 [facility] CPK 196 U/L 12-199 CBC With Auto Diff 07/01/2014 [facility] WBC 4.9 K/uL 4.1-11.0 RBC 5.15 M/uL 4.60-6.10 Hemoglobin 12.6 gm/dL Low 13.5-18.0 Hematocrit 39.5 % Low 41.0-53.0 MCV 76.8 fL Low 80.0-97.0 MCH 24.4 pg Low 27.0-32.0 MCHC 31.8 g/dL Low 32.0-36.0 RDW 16.6 % High 11.5-14.5 PLT Count 355 K/ul 140-400 Neutrophil 40.8 % 35.0-75.0 Lymphocyte 42.0 % 16.0-52.0 Monocyte 12.5 % High 2.0-10.0 Eosinophil 3.4 % 0.0-5.0 Basophil 1.3 % 0.0-4.0 Abs Neutrophils 2.0 K/uL Low 2.1-8.0 Abs Lymphocytes 2.0 K/uL 0.8-5.5 Abmon 0.6 K/uL 0.1-1.0 Abs Eosinophils 0.2 K/uL 0.0-0.5 Abs Basophils 0.1 K/uL 0.0-0.3 Laboratory test finding 07/01/2014 [facility] TSH 3.49 uIU/mL 0.34-5.60 Comprehensive Metabolic (CMP) 07/01/2014 [facility] Sodium 136 mmol/L 134- 142 Potassium 4.7 mmol/L 3.5-5.2 Chloride 103 mmol/L 97-109 Carbon Dioxide 23 mmol/L Low 24-34 Glucose 82 mg/dL 70-105 BUN 16 mg/dL 6-26 Creatinine 0.7 mg/dL 0.5-1.4 Calcium 9.2 mg/dL 8.5-10.2 Total Protein 7.0 g/dL 6.0-8.0 Albumin 4.4 g/dL 3.6-4.9 Globulin 2.6 g/dL 2.0-3.5 A/G Ratio 1.7 Ratio 1.0-2.2 Total Bilirubin 0.3 mg/dL 0.1-1.3 Alkaline Phosphatase 58 U/L 24-140 Alt 28 U/L 3-42 Ast 24 U/L 8-42 Anion Gap 15 mmol/L High 6-14 Ally Egfr >60 >60 38 Non Ally Egfr >60 >60 39 Lipid 07/01/2014 [facility] Cholesterol 311 mg/dL High 50-199 Triglycerides 272 mg/dL High 30-200 HDL 57 mg/dL 29-71 40 Chol/ HDL Ratio 5.5 ratio 4.0-6.7 VLDL 54 mg/dL High 2-29 LDL (Calc) 200 mg/dL High 20-99 41 Laboratory test finding 12/02/2013 N2N/CCD Import Alt 38.0 U/L 21.0- 72.0 Ast 31.0 U/L 17.0-59.0 Lipid Panel 12/02/2013 N2N/CCD Import Chol/HDL Ratio 3.4 ratio Cholesterol 230.0 mg/dL High 50.0-199.0 HDL 68.0 mg/dL High 29.0-67.0 LDL, Calculated 140.6 mg/dL High 20.0-129.0 Triglycerides 107.0 mg/dL 30.0-249.0 vLDL 21.4 ng/dL Laboratory test finding 10/02/2013 N2N/CCD Import % Baso. 2.3 % High 0.0- 2.0 % Eos. 5.1 % High 0.0-4.0 % Lymph 32 % 20-44 % [place] 12.6 % High 2.0-10.0 % [place] 48 % Low 50-70 Absolute Baso. 0.1 K/ul 0.0-0.3 Absolute Eos. 0.3 K/ul 0.0-0.5 Absolute Lymph. 1.7 K/ul 0.8-4.8 Absolute [place]. 0.6 K/ul 0.1-1.0 Absolute [place]. 2.47 K/ul 2.05-7.63 Alt 27.0 U/L 21.0-72.0 Ast 28.0 U/L 17.0-59.0 BUN 16.0 mg/dL 9.0-21.0 BUN/Creat Ratio 20.0 ratio 12.0-20.0 Calcium 9.9 mg/dL 8.7-10.5 Chloride 102.0 mmol/L 98.0-107.0 Co2 29.0 mmol/L 22.0-30.0 Creatinine-Serum 0.8 mg/dL 0.8-1.5 Glucose 96.0 mg/dL 75.0-110.0 HCT 38.9 % 37.0-51.0 HGB 11.6 Gm/dl Low 12.0-16.0 MCH 19.7 pg Low 26.0-32.0 MCHC 29.9 g/dL Low 31.0-36.0 MCV 65.8 Fl Low 80.0-97.0 MPV 5.7 fL Low 6.0-10.0 PLT 417 K/ul 140-440 Potasium 4.8 mmol/L 3.6-5.0 RBC 5.9 M/ul 4.2-6.3 RDW 17.2 % High 11.5-14.5 Sodium 137.0 mmil/L 137.0-145.0 TSH 1.30 uIU/ml 0.50-6.00 WBC 5.2 K/ul 4.1-10.9 eGFR 111.1 Lipid Panel 10/02/2013 N2N/CCD Import Chol/HDL Ratio 5.0 ratio Cholesterol 362.0 mg/dL High 50.0-199.0 HDL 72.0 mg/dL High 29.0-67.0 LDL, Calculated 276.8 mg/dL High 20.0-129.0 Triglycerides 66.0 mg/dL 30.0-249.0 vLDL 13.2 ng/dL Laboratory test finding 03/27/2013 N2N/CCD Import % Baso. 1.5 % 0.0-2.0 % Eos. 3.3 % 0.0-4.0 % Lymph 24 % 20-44 % [place] 12.3 % High 2.0-10.0 % [place] 59 % 50-70 Absolute Baso. 0.1 K/ul 0.0-0.3 Absolute Eos. 0.2 K/ul 0.0-0.5 Absolute Lymph. 1.4 K/ul 0.8-4.8 Absolute [place]. 0.7 K/ul 0.1-1.0 Absolute [place]ot. 3.38 K/ul 2.05-7.63 Antigliadin Abs, IgA 2 units 0-19 42 Antigliadin Abs, IgG 4 units 0-19 43 BUN 16.0 mg/dL 9.0-21.0 BUN/Creat Ratio 16.0 ratio 12.0-20.0 Calcium 9.6 mg/dL 8.7-10.5 Celiac Disease Comp AB Profile See Note 44 Chloride 98.0 mmol/L 98.0-107.0 Co2 29.0 mmol/L 22.0-30.0 Creatinine-Serum 1.0 mg/dL 0.8-1.5 Endomysial IgA Antibody Negative Negative Glucose 91.0 mg/dL 75.0-110.0 HCT 42.8 % 37.0-51.0 HGB 13.5 Gm/dl 12.0-16.0 Immunoglobulin A 153 mg/dL 91-414 MCH 25.9 pg Low 26.0-32.0 MCHC 31.6 g/dL 31.0-36.0 MCV 82.0 Fl 80.0-97.0 MPV 6.4 fL 6.0-10.0 PLT 314 K/ul 140-440 Potasium 4.5 mmol/L 3.6-5.0 RBC 5.2 M/ul 4.2-6.3 RDW 16.2 % High 11.5-14.5 Sodium 135.0 mmil/L Low 137.0-145.0 WBC 5.7 K/ul 4.1-10.9 eGFR 85.9 t-Transglutaminase IgA <2 U/mL 0-3 45 t-Transglutaminase IgG <2 U/mL 0-5 46 Laboratory test finding 01/12/2013 N2N/CCD Import % Baso. 1.9 % 0.0-2.0 % Eos. 4.8 % High 0.0-4.0 % Lymph 30 % 20-44 % [place] 13.1 % High 2.0-10.0 % [place] 50 % 50-70 Absolute Baso. 0.1 K/ul 0.0-0.3 Absolute Eos. 0.3 K/ul 0.0-0.5 Absolute Lymph. 1.6 K/ul 0.8-4.8 Absolute [place]. 0.7 K/ul 0.1-1.0 Absolute [place]. 2.68 K/ul 2.05-7.63 HCT 29.4 % Low 37.0-51.0 HGB 8.7 Gm/dl Low 12.0-16.0 MCH 22.8 pg Low 26.0-32.0 MCHC 29.7 g/dL Low 31.0-36.0 MCV 76.9 Fl Low 80.0-97.0 MPV 6.9 fL 6.0-10.0 PLT 364 K/ul 140-440 RBC 3.8 M/ul Low 4.2-6.3 RDW 14.4 % 11.5-14.5 WBC 5.3 K/ul 4.1-10.9 Laboratory test finding 09/17/2012 N2N/CCD Import % Baso. 2.1 % High 0.0- 2.0 % Eos. 5.7 % High 0.0-4.0 % Lymph 41 % 20-44 % [place] 13.6 % High 2.0-10.0 % [place] 38 % Low 50-70 Absolute Baso. 0.1 K/ul 0.0-0.3 Absolute Eos. 0.3 K/ul 0.0-0.5 Absolute Lymph. 2.1 K/ul 0.8-4.8 Absolute [place]. 0.7 K/ul 0.1-1.0 Absolute [place]. 1.94 K/ul Low 2.05-7.63 HCT 43.4 % 37.0-51.0 HGB 13.6 Gm/dl 12.0-16.0 MCH 27.3 pg 26.0-32.0 MCHC 31.3 g/dL 31.0-36.0 MCV 87.4 Fl 80.0-97.0 MPV 6.8 fL 6.0-10.0 PLT 362 K/ul 140-440 RBC 5.0 M/ul 4.2-6.3 RDW 15.5 % High 11.5-14.5 TSH 1.65 uIU/ml 0.50-6.00 WBC 5.2 K/ul 4.1-10.9 Laboratory test finding 05/13/2012 N2N/CCD Import % Baso. 1.6 % 0.0-2.0 % Eos. 4.5 % High 0.0-4.0 % Lymph 30 % 20-44 % [place] 13.9 % High 2.0-10.0 % [place] 50 % 50-70 Absolute Baso. 0.1 K/ul 0.0-0.3 Absolute Eos. 0.3 K/ul 0.0-0.5 Absolute Lymph. 1.9 K/ul 0.8-4.8 Absolute [place]. 0.9 K/ul 0.1-1.0 Absolute [place]. 3.16 K/ul 2.05-7.63 HCT 38.0 % 37.0-51.0 HGB 11.0 Gm/dl Low 12.0-16.0 MCH 19.6 pg Low 26.0-32.0 MCHC 28.8 g/dL Low 31.0-36.0 MCV 68.1 Fl Low 80.0-97.0 MPV 6.8 fL 6.0-10.0 PLT 414 K/ul 140-440 RBC 5.6 M/ul 4.2-6.3 RDW 15.2 % High 11.5-14.5 TSH 2.29 uIU/ml 0.50-6.00 WBC 6.3 K/ul 4.1-10.9 Laboratory test 03/14/2012 N2N/CCD Import Esophageal Biopsy See Note 47 finding Laboratory test 02/07/2012 N2N/CCD Import Hematocrit 36.6 % Low 37.0-51 finding .0 Hemoglobin 11.0 GM/dl Low 12.0-16.0 Vitamin B12 And 01/31/2012 N2N/CCD Import Folic Acid 19.0 ng/mL High 6.0- 15.4 Folate Vitamin B12 450 pg/mL 200-900 Laboratory test finding 01/31/2012 N2N/CCD Import Anisocytosis 1+ Basophil% 4 % High 0-2 Differential Comment Large PLTS Seen Eosinophil% 11 % High 0-5 Ferritin 5.0 ng/mL 5-244 Hematocrit 34.0 % Low 38.0-48.0 Hemoglobin 10.2 gm/dL Low 12.8-17.0 Lymph% 35 % 17-56 Mean Cell Volume 72.5 fl Low 80.0-96.0 Mean Corpuscular HGB 21.7 pg Low 27.0-33.0 Mean Corpuscular HGB Conc 30.0 g/dL Low 31.7-36.0 Mean Platelet Volume 10.0 fL 6.6-10.6 Microcytosis 2+ Monocyte% 7 % 0-10 Neutrophils% 43 % 33-73 Platelet Count 423 K/uL High 150-400 Platelet Estimate Slight Increase Polychromasia 1+ Red Blood Count 4.69 M/uL 4.20-5.80 Red Cell Distri Width %CV 15.5 % 11.6-15.8 Red Cell Distri Width SD 39.5 fl 36-51 Serum Iron 20 g/dL Low 31-144 Total Cells Counted 100 #CELLS Total Iron Binding Capacity 511 g/dL High 245-419 Transferrin %Saturation 4 % Low 12-57 White Blood Count 5.4 K/uL 3.4-10.5 Lipid Panel 01/22/2012 N2N/CCD Import Chol/HDL Ratio 4.1 48, 49 Cholesterol 291 mg/dL High 50-199 HDL Cholesterol 70 mg/dL High 29-67 LDL 195 mg/dL High 20-129 Triglycerides 130 mg/dL 30-249 VLDL Cholesterol 26 mg/dL Laboratory test finding 01/22/2012 N2N/CCD Import A/G Ratio 1.3 1.0-2.2 Absolute Basophils 0.112 K/ul 0.0-0.3 Absolute Eosinophils 0.238 K/ul 0.0-0.5 Absolute Lymphocytes 1.84 K/ul 0.8-4.8 Absolute Monocytes 0.846 K/ul 0.1-1.0 Absolute Neutrophils 3.36 K/ul 2.05-7.63 Albumin 4.0 g/dL 3.5-5.0 Alkaline Phosphatase 74 U/L 30-126 Alt 46 U/L 21-72 Ast 38 U/L 17-59 BUN 17 mg/dL 9-21 BUN/CR Ratio 22.1 Ratio High 12-20 Basophil 1.8 % 0-2 Calcium 9.7 mg/dL 8.7-10.5 Carbon Dioxide 27 mmol/L 22-30 Chloride 102 mmol/L 98-107 Creatinine, Serum 0.8 mg/dL 0.8-1.5 Eosinophil 3.7 % 0-4 Globulin 3.1 g/dL 2.7-4.3 Glucose 87 mg/dL 75-110 Hematocrit 31.7 % Low 37.0-51.0 Hemoglobin 9.4 GM/dl Low 12.0-16.0 Lymphocytes 28.7 % 20-44 MCH 21.4 pg Low 26.0-32.0 MCHC 29.7 g/dL Low 31.0-36.0 MCV 72 FL Low 80-97 Monocytes 13.2 % High 2-10.0 Neutrophils 52.6 % 50-70 Platelet Count 370 K/ul 140-440 Potassium 4.7 mmol/L 3.6-5.0 RBC 4.40 M/ul 4.2-6.3 RDW 14.0 % 11.5-14.5 Sodium 139 mmol/L 137-145 TSH 4.802 uIU/ml 0.50-6.00 Total Bilirubin 0.7 mg/dL 0.2-1.3 Total Protein 7.1 g/dL 6.3-8.2 WBC 6.4 K/ul 4.1-10.9 1 ABD PAIN 2 URINE, CLEAN CATCH 3 Note: Persistent reduction for 3 months or more in an eGFR <60 mL/min/1.73 m2 defines CKD. Patients with eGFR values >/=60 mL/min/1.73 m2 may also have CKD if evidence of persistent proteinuria is present. The original MDRD equation for estimated GFR is not valid for patients less than 18 years of age. Additional information may be found at [email or web address]. 4 Method: [facility] Hemoccult Card 5 Unless otherwise specified, testing performed by [facility] [place] [address] 6 Unless otherwise specified, testing performed by [facility] [address] [place] [address] 7 Per NCEP ATP III Guidelines: Results lower than 40 mg/dL are suggestive of increased risk for coronary artery disease. Results > or=to 60 mg/dL are considered a negative risk factor. 8 Per NCEP ATP III Guidelines: Normal Population <130 Patients with medical conditions: CHD/DM Optimal: <100 Borderline high: 130-159 High: 160-189 Very high: >189 9 Updated reference range on new analyzer 10 Updated reference range on new analyzer 11 Concerning GFR Guidelines: Normal function or mild renal disease, if clinically at risk: >/=60 mL/min Moderately decreased: 30-59 Severely decreased: 15-29 Renal failure: <15 Glomerular Filtration Rate (GFR) is estimated based on the MDRD equation, which assumes a steady state for creatinine as recommended by the National Kidney Disease Education Program in conjunction with the National Institutes of Health and the National Kidney Foundation. Clinical conditions in which it may be necessary to measure GFR by using clearance methods include extremes of age and body size, severe malnutrition or obesity, diseases of skeletal muscle, paraplegia or quadriplegia, vegetarian diet, rapidly changing kidney function, and calculation of the dose of potentially toxic drugs that are excreted by the kidneys. 12 Concerning GFR Guidelines for Americans: Normal function or mild renal disease, if clinically at risk: >/=60 mL/min Moderately decreased: 30-59 Severely decreased: 15-29 Renal failure: <15 13 Updated Reference Range 14 Interpretation: 0-25 Negative 26-35 Equivocal >35 Positive 15 Interpretation: 0-40 Negative 41-60 Equivocal >60 Positive 16 Reference range: 9.0 to 27.0 Unit: ng/dL INTERPRETIVE INFORMATION: Triiodothyronine, Reverse - LC-MS/MS Test developed and characteristics determined by [facility]. See Compliance Statement B: [facility]/ Performed by [facility], [facility] [address] [email or web address], Henrique Farah MD, Lab. Director Unless otherwise specified, testing performed by [facility] [place] [address] 17 ADULT REFERENCE RANGE Unless otherwise specified, testing performed by [facility] [place] [address] 18 Reference range: 19.9 to 79.3 Unit: pg/mL INTERPRETIVE INFORMATION: Vitamin D, 1,25-Dihydroxy This test is primarily indicated during patient evaluation for hypercalcemia and renal failure. A normal result does not rule out Vitamin D deficiency. The recommended test for diagnosing Vitamin D deficiency is Vitamin D 25-hydroxy. Performed by [facility], [facility] [place] [address] [email or web address], Henrique Farah MD, Lab. Director Unless otherwise specified, testing performed by [facility] [address] [place] [address] 19 Unless otherwise specified, testing performed by [facility] [place] [address] 20 Updated reference range on new analyzer 21 Updated reference range on new analyzer 22 Concerning GFR Guidelines: Normal function or mild renal disease, if clinically at risk: >/=60 mL/min Moderately decreased: 30-59 Severely decreased: 15-29 Renal failure: <15 Glomerular Filtration Rate (GFR) is estimated based on the MDRD equation, which assumes a steady state for creatinine as recommended by the National Kidney Disease Education Program in conjunction with the National Institutes of Health and the National Kidney Foundation. Clinical conditions in which it may be necessary to measure GFR by using clearance methods include extremes of age and body size, severe malnutrition or obesity, diseases of skeletal muscle, paraplegia or quadriplegia, vegetarian diet, rapidly changing kidney function, and calculation of the dose of potentially toxic drugs that are excreted by the kidneys. 23 Concerning GFR Guidelines for Americans: Normal function or mild renal disease, if clinically at risk: >/=60 mL/min Moderately decreased: 30-59 Severely decreased: 15-29 Renal failure: <15 24 Updated reference range on new analyzer 25 Per NCEP ATP III Guidelines: Results lower than 40 mg/dL are suggestive of increased risk for coronary artery disease. Results > or=to 60 mg/dL are considered a negative risk factor. 26 Per NCEP ATP III Guidelines: Normal Population <130 Patients with medical conditions: CHD/DM Optimal: <100 Borderline high: 130-159 High: 160-189 Very high: >189 27 A Negative serologic test for Lyme Disease indicates no serologic evidence of infection with B burgdorferi at the time this specimen was collected. A repeat specimen should be collected in 2 to 4 weeks if clinically indicated. Unless otherwise specified, testing performed by [facility] [address] [place] [id number] Concerning GFR Guidelines for Americans: Normal function or mild renal disease, if clinically at risk: >/=60 mL/min Moderately decreased: 30-59 Severely decreased: 15-29 Renal failure: <15 29 Concerning GFR Guidelines: Normal function or mild renal disease, if clinically at risk: >/=60 mL/min Moderately decreased: 30-59 Severely decreased: 15-29 Renal failure: <15 Glomerular Filtration Rate (GFR) is estimated based on the MDRD equation, which assumes a steady state for creatinine as recommended by the National Kidney Disease Education Program in conjunction with the National Institutes of Health and the National Kidney Foundation. Clinical conditions in which it may be necessary to measure GFR by using clearance methods include extremes of age and body size, severe malnutrition or obesity, diseases of skeletal muscle, paraplegia or quadriplegia, vegetarian diet, rapidly changing kidney function, and calculation of the dose of potentially toxic drugs that are excreted by the kidneys. 30 Fastin hours 31 Unit: ng/mL TEST INFORMATION: Serotonin, Serum Test developed and characteristics determined by [facility]. See Compliance Statement B: [address] Performed by [facility], [address] [place] [address] [email or web address], Nate Driver MD, Lab. Director Unless otherwise specified, testing performed by [facility] [address] [place] [id number] 32 Concerning GFR Guidelines for Americans: Normal function or mild renal disease, if clinically at risk: >/=60 mL/min Moderately decreased: 30-59 Severely decreased: 15-29 Renal failure: <15 33 Concerning GFR Guidelines: Normal function or mild renal disease, if clinically at risk: >/=60 mL/min Moderately decreased: 30-59 Severely decreased: 15-29 Renal failure: <15 Glomerular Filtration Rate (GFR) is estimated based on the MDRD equation, which assumes a steady state for creatinine as recommended by the National Kidney Disease Education Program in conjunction with the National Institutes of Health and the National Kidney Foundation. Clinical conditions in which it may be necessary to measure GFR by using clearance methods include extremes of age and body size, severe malnutrition or obesity, diseases of skeletal muscle, paraplegia or quadriplegia, vegetarian diet, rapidly changing kidney function, and calculation of the dose of potentially toxic drugs that are excreted by the kidneys. 34 Concerning GFR Guidelines: Normal function or mild renal disease, if clinically at risk: >/=60 mL/min Moderately decreased: 30-59 Severely decreased: 15-29 Renal failure: <15 Glomerular Filtration Rate (GFR) is estimated based on the MDRD equation, which assumes a steady state for creatinine as recommended by the National Kidney Disease Education Program in conjunction with the National Institutes of Health and the National Kidney Foundation. Clinical conditions in which it may be necessary to measure GFR by using clearance methods include extremes of age and body size, severe malnutrition or obesity, diseases of skeletal muscle, paraplegia or quadriplegia, vegetarian diet, rapidly changing kidney function, and calculation of the dose of potentially toxic drugs that are excreted by the kidneys. 35 Concerning GFR Guidelines for Americans: Normal function or mild renal disease, if clinically at risk: >/=60 mL/min Moderately decreased: 30-59 Severely decreased: 15-29 Renal failure: <15 36 Per NCEP ATP III Guidelines: Results lower than 40 mg/dL are suggestive of increased risk for coronary artery disease. Results > or=to 60 mg/dL are considered a negative risk factor. 37 Per NCEP ATP III Guidelines: Normal Population <130 Patients with medical conditions: CHD/DM Optimal: <100 Borderline high: 130-159 High: 160-189 Very high: >189 38 Concerning GFR Guidelines for Americans: Normal function or mild renal disease, if clinically at risk: >/=60 mL/min Moderately decreased: 30-59 Severely decreased: 15-29 Renal failure: <15 39 Concerning GFR Guidelines: Normal function or mild renal disease, if clinically at risk: >/=60 mL/min Moderately decreased: 30-59 Severely decreased: 15-29 Renal failure: <15 Glomerular Filtration Rate (GFR) is estimated based on the MDRD equation, which assumes a steady state for creatinine as recommended by the National Kidney Disease Education Program in conjunction with the National Institutes of Health and the National Kidney Foundation. Clinical conditions in which it may be necessary to measure GFR by using clearance methods include extremes of age and body size, severe malnutrition or obesity, diseases of skeletal muscle, paraplegia or quadriplegia, vegetarian diet, rapidly changing kidney function, and calculation of the dose of potentially toxic drugs that are excreted by the kidneys. 40 Per NCEP ATP III Guidelines: Results lower than 40 mg/dL are suggestive of increased risk for coronary artery disease. Results > or=to 60 mg/dL are considered a negative risk factor. 41 Per NCEP ATP III Guidelines: Normal Population <130 Patients with medical conditions: CHD/DM Optimal: <100 Borderline high: 130-159 High: 160-189 Very high: >189 42 Negative 0 - 19 Weak Positive 20 - 30 Moderate to Strong Positive >30 43 Negative 0 - 19 Weak Positive 20 - 30 Moderate to Strong Positive >30 44 NO SPECIMEN RECEIVED 45 Negative 0 - 3 Weak Positive 4 - 10 Positive >10 Tissue Transglutaminase ( tTG) has been identified as the endomysial antigen. Studies have demonstr- ated that endomysial IgA antibodies have over 99% specificity for gluten sensitive enteropathy. 46 Negative 0 - 5 Weak Positive 6 - 9 Positive >9 Performed at: RN - [facility] [address] [id number] Banquet Steward: Shilpa Hoskins MD, Phone: [phone] OPERATION/PROCEDURE Upper endoscopy, colonoscopy with speedbanding. DIAGNOSIS: "ESOPHAGUS, BIOPSIES": FRAGMENTS OF GASTRIC AND ESOPHAGEAL MUCOSA OF JUNCTIONAL ORIGIN DEMONSTRATING REACTIVE CHANGES IN A BACKGROUND INFLAMMATION CONSISTENT WITH ESOPHAGITIS AND GASTRITIS, NONSPECIFIC, MILD TO MODERATE. ANNIE/júnior GROSS "ESOPAHGEAL BIOPSIES". The specimen is received in an appropriately labeled container. This contains one rounded frankel colored piece of soft tissue measuring up to 0.4 x 0.4 x 0.1 cm.; filtered and submitted in toto within a single cassette. /[facility] MICROSCOPIC Specimen is composed of a mixture of fragments from the esophagus, and stomach. In one piece, there is the combination of squamous and columnar superficial epithelium consistent with junctional mucosa. The squamous component is acanthotic and demonstrates mild spongiosis with exocytosis of inflammatory cells. The glandular component demonstrates mild reactive distortion, and branching associated with varying degrees of chronic inflammation. Goblet cell metaplasia characteristic of Solo type metaplasia is not observed. PRE OPERATIVE DIAGNOSIS Anemia, rectal bleeding. REVIEW CODE CODE: I ----- KARLY Okeefe MD 03/17/12 1321 ----- 48 FASTING 49 Normal Range: Male: <4.98 Female: <4.45 Procedures Date Code Description Status 03/28/2017 80585 Omt 1-2 Body Regions Completed 01/15/2017 93746 Omt 1-2 Body Regions Completed 11/26/2016 58303 Omt 1-2 Body Regions Completed 10/05/2016 38770 Omt 1-2 Body Regions Completed 10/05/2016 40296 Measure Blood Oxygen Level Single Determination Completed 07/12/2016 40978 Echography Scrotum & Contents Completed 05/28/2016 40007 Omt 1-2 Body Regions Completed 03/12/2016 97282 Electrocardiogram Complete Completed 03/02/2016 05994 Measure Blood Oxygen Level Single Determination Completed 11/09/2015 58727 Omt 1-2 Body Regions Completed 10/24/2015 05650 Omt 1-2 Body Regions Completed 07/11/2015 28634 X-Ray Finger(S) Two Views Completed 05/04/2014 03558 Electrocardiogram Complete Completed 12/08/2013 72948 Omt 1-2 Body Regions Completed 10/02/2013 98262 Omt 1-2 Body Regions Completed 06/03/2013 97255 Measure Blood Oxygen Level Single Determination Completed 05/28/2013 38937 Measure Blood Oxygen Level Single Determination Completed 01/12/2013 90413 Omt 3-4 Body Regions Completed 09/17/2012 52204 Spirometry /PFT W/O Bronchodialator Completed 05/13/2012 58437 Measure Blood Oxygen Level Single Determination Completed 03/26/2012 89983 Omt 3-4 Body Regions Completed 03/14/2012 75570 Colonoscopy Flexible Diagnostic Completed 03/14/2012 [id number] Colonoscopy Completed 12/24/2011 42644 Omt 3-4 Body Regions Completed 12/18/2011 19237 Visual Screening Test Completed 12/18/2011 91740 Screening Hearing Test Completed Encounters Type Date Location Provider Dx Diagnosis Office Visit 01/08/2018 Martin Funk DO K92.2 Gastrointestinal 2:45p hemorrhage, unspecified D64.9 Anemia, unspecified N52.9 Male erectile dysfunction, unspecified M25.519 Pain in unspecified shoulder 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 Z68.25 Body mass index (BMI) 25.0-25.9, adult Office Visit 11/18/2017 2:45p Martin Funk DO E03.9 Hypothyroidism , unspecified M54.9 Dorsalgia, unspecified I10 Essential (primary) hypertension 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, unsp M25.511 Pain in RIGHT shoulder E78.2 Mixed hyperlipidemia Z68.25 Body mass index (BMI) 25.0-25.9, adult Office Visit 07/09/2017 9:15a Martin Funk DO I10 Essential ( primary) hypertension E03.9 Hypothyroidism, unspecified M25.511 Pain in RIGHT shoulder M54.9 Dorsalgia, unspecified 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, unsp Office Visit 03/28/2017 3:15p Martin Funk DO F31.81 Bipolar II disorder M25.511 Pain in RIGHT shoulder D64.9 Anemia, unspecified K64.9 Unspecified hemorrhoids E16.2 Hypoglycemia, unspecified R53.83 Other fatigue Office Visit 01/15/2017 9:00a Martin Funk DO F31.81 Bipolar II disorder M25.511 Pain in RIGHT shoulder M54.2 Cervicalgia M99.01 Segmental and somatic dysfunction of cervical region Office Visit 11/26/2016 1:00p Martin Funk DO F31.81 Bipolar II disorder M25.511 Pain in RIGHT shoulder M54.2 Cervicalgia M99.01 Segmental and somatic dysfunction of cervical region Office Visit 10/05/2016 4:00p Martin Funk DO J02.9 Acute pharyngitis, unspecified M25.561 Pain in RIGHT knee M54.2 Cervicalgia M99.01 Segmental and somatic dysfunction of cervical region Office Visit 09/13/2016 10:15a Martin Funk DO F31.81 Bipolar II disorder R60.9 Edema, unspecified M25.549 Pain in joints of unspecified hand Office Visit 08/03/2016 11:15a Martin Funk DO M25.529 Pain in unspecified elbow S40.869A Insect bite (nonvenomous) of unsp upper arm, init encntr F32.9 Major depressive disorder, single episode, unspecified Office Visit 05/28/2016 1:45p Martin Funk DO M25.511 Pain in RIGHT shoulder F32.9 Major depressive disorder, single episode, unspecified F10.21 Alcohol dependence, in remission I10 Essential (primary) hypertension F90.0 Attn-defct hyperactivity disorder, predom inattentive type E78.2 Mixed hyperlipidemia M54.2 Cervicalgia M99.01 Segmental and somatic dysfunction of cervical region Office Visit 03/12/2016 1:30p Martin Funk DO Z01.810 Encounter for preprocedural cardiovascular examination M25.511 Pain in RIGHT shoulder F32.9 Major depressive disorder, single episode, unspecified F10.21 Alcohol dependence, in remission I10 Essential (primary) hypertension F90.0 Attn-defct hyperactivity disorder, predom inattentive type R53.83 Other fatigue Office Visit 03/02/2016 2:00p Martin Funk DO J06.9 Acute upper respiratory infection, unspecified F32.9 Major depressive disorder, single episode, unspecified Office Visit 01/20/2016 3:00p Martin Funk DO M25.511 Pain in RIGHT shoulder N50.9 Disorder of male genital organs, unspecified M54.2 Cervicalgia Office Visit 11/09/2015 2:45p Martin Funk DO M25.519 Pain in unspecified shoulder M54.2 Cervicalgia M54.6 Pain in thoracic spine M99.02 Segmental and somatic dysfunction of thoracic region Office Visit 10/24/2015 2:00p Martin Funk DO I10 Essential ( primary) hypertension F10.21 Alcohol dependence, in remission M25.511 Pain in RIGHT shoulder M54.6 Pain in thoracic spine M99.02 Segmental and somatic dysfunction of thoracic region F90.0 Attn-defct hyperactivity disorder, predom inattentive type L72.3 Sebaceous cyst Office Visit 07/11/2015 1:15p Martin Funk DO R53.83 Other fatigue M25.512 Pain in LEFT shoulder M25.562 Pain in LEFT knee M79.645 Pain in LEFT finger(s) F10.21 Alcohol dependence, in remission Office Visit 05/30/2015 3:00p Martin Funk DO R10.84 Generalized abdominal pain R19.7 Diarrhea, unspecified D64.9 Anemia, unspecified I10 Essential (primary) hypertension R11.0 Nausea R53.83 Other fatigue F33.1 Major depressive disorder, recurrent, moderate Office Visit 04/25/2015 2:45p Martin Funk DO I10 Essential ( primary) hypertension E78.2 Mixed hyperlipidemia K21.9 Gastro-esophageal reflux disease without esophagitis D64.9 Anemia, unspecified F10.10 Alcohol abuse, uncomplicated M54.5 Low back pain Office Visit 12/02/2014 8:30a Martin Funk DO 401.9 Hypertension Unspec 272.2 Hyperlipidemia Mixed 530.81 Esophageal Reflux 285.9 Anemia Unspec 305.01 Alcohol Abuse Continuous 724.2 Lumbago 307.49 Sleep Disorder Other Office Visit 09/28/2014 9:45a [facility] Martin Owens DO 401.9 Hypertension Unspec 272.2 Hyperlipidemia Mixed 530.81 Esophageal Reflux 285.9 Anemia Unspec 784.91 Postnasal Drip 305.01 Alcohol Abuse Continuous Office Visit 06/28/2014 3:15p [facility] Martin Owens DO 717.3 Derangement Medial Meniscus Other & Unspec 401.9 Hypertension Unspec 272.2 Hyperlipidemia Mixed 285.9 Anemia Unspec 311 Depressive Disorder Not Elsewhere Spec Office Visit 05/04/2014 11:30a [facility] Martin Owens DO V72.84 Examination Preoperative Unspec 717.3 Derangement Medial Meniscus Other & Unspec 401.9 Hypertension Unspec 272.2 Hyperlipidemia Mixed 794.31 Electrocardiogram (ECG) (EKG) Abnormal 530.81 Esophageal Reflux 724.2 Lumbago 285.9 Anemia Unspec 455.8 Hemorrhoids Unspec W/ Other Complications Plan of Treatment Future Appointment(s):03/12/2018 10:00 am - Martin Owens DO at [facility]02/27/2018 - Martin Owens DOR10.30 Lower abdominal pain, unspecifiedNew Medication: Amoxicillin/Clavulanate Potassium 875-125 mg - 1 by mouth twice a day x 7 daysFollow up:Get labs done today. See me as scheduled.K57.31 Diverticulosis of large intestine without perforation or absK92.2 Gastrointestinal hemorrhage, xkyyzdkuxzkN72.561 Pain in RIGHT kneeZ68.25 Body mass index (BMI) 25.0-25.9, adult
[2018-03-23 11:58] VITALS: BP 132/82
--- NOTE | 2018-03-23 12:15 | UC ---
Respiratory Complaint HPI - HPI Summary HPI Summary: Pt c/o cough, chest congestion, weakness, SOB, wheezing, fatigue and generalized malaise X 7 days. Pt states that he "is getting worse". Pt has hx of copd - History of Current Complaint Chief Complaint: UCRespiratory Stated Complaint: COUGH,CONGESTION,FEVER Time Seen by Provider: 03/23/18 12:06 Hx Obtained From: Patient Onset/Duration: Gradual Onset, Lasting Days, Still Present, Worse Since Timing: Constant Severity Initially: Mild Severity Currently: Moderate Pain Intensity: 0 Character: Cough: Nonproductive Aggravating Factors: Exertion, Deep Breaths, Recumbent Position Alleviating Factors: Nothing Associated Signs And Symptoms: Positive: URI, Nasal Congestion - Risk Factors Pulmonary Embolism Risk Factors: Negative Cardiac Risk Factors: Negative Pseudomonas Risk Factors: Chronic Lung Disease Tuberculosis Risk Factors: Negative - Allergies/Home Medications Allergies/Adverse Reactions: Allergies Allergy/AdvReac Type Severity Reaction Status Date / Time banana Allergy Vomiting Verified 03/23/18 11:55 PMH/Surg Hx/FS Hx/Imm Hx Previously Healthy: Yes Respiratory History: COPD - Surgical History Surgical History: Yes Surgery Procedure, Year, and Place: RT KNEE ACL AND MENISCUS REPAIR, fx skull, RT SHOULDER RTC REPAIR. COLON SURGERY (HEMMORHOIDS) - Family History Known Family History: Positive: Cardiac Disease, Other - CA, CVA - Social History Occupation: Employed Full-time Lives: With Family Alcohol Use: Rare Substance Use Type: Marijuana Substance Use Comment - Amount & Last Used: OCCASIONAL Smoking Status (MU): Former Smoker Have You Smoked in the Last Year: Yes - marijuana When Did the Patient Quit Smoking/Using Tobacco: 30+ years ago - Immunization History Most Recent Influenza Vaccination: none Most Recent Tetanus Shot: 2011 Most Recent Pneumonia Vaccination: none Vaccination Up to Date: Yes Review of Systems All Other Systems Reviewed And Are Negative: Yes Constitutional: Positive: Fatigue Skin: Positive: Negative Eyes: Positive: Negative Respiratory: Positive: Shortness Of Breath, Cough Cardiovascular: Positive: Negative Gastrointestinal: Positive: Negative Genitourinary: Positive: Negative Motor: Positive: Negative Neurovascular: Positive: Negative Musculoskeletal: Positive: Negative Neurological: Positive: Negative Psychological: Positive: Negative Is Patient Immunocompromised?: No Physical Exam Triage Information Reviewed: Yes Appearance: Ill-Appearing Vital Signs: Initial Vital Signs Temp 97.2 F 03/23/18 11:54 Pulse 71 03/23/18 11:54 Resp 16 03/23/18 11:54 BP 132/82 03/23/18 11:54 Pulse Ox 98 03/23/18 11:54 Vital Signs Reviewed: Yes Eye Exam: Normal ENT: Positive: Nasal congestion Dental Exam: Normal Neck exam: Normal Respiratory: Positive: Decreased breath sounds Cardiovascular Exam: Normal Musculoskeletal Exam: Normal Neurological Exam: Normal Psychological Exam: Normal Skin Exam: Normal UC Diagnostic Evaluation - Laboratory O2 Sat by Pulse Oximetry: 98 Respiratory Course/Dx - Differential Dx/Diagnosis Differential Diagnosis/HQI/PQRI: Bronchitis, Other - pneumonia Provider Diagnosis: Bronchitis Discharge - Sign-Out/Discharge Documenting (check all that apply): Patient Departure All imaging exams completed and their final reports reviewed: No Studies - Discharge Plan Condition: Stable Disposition: HOME Prescriptions: Azithromycin TAB* [Zithromax TAB (Z-JUICE) 250 mg #6 tabs] 2 tab PO .TODAY, THEN 1 DAILY #1 juice predniSONE TAB* [Deltasone 10 MG TAB*] 30 mg PO DAILY #12 tab Patient Education Materials: Acute Bronchitis (ED) Referrals: Martin Owens DO [Primary Care Provider] - As Soon As Possible - Billing Disposition and Condition Condition: STABLE Disposition: Home
== END 2018-03-23 12:22 | disposition home or self-care (01) ==
LOC: UCCORT 11:32
DX: J40 Bronchitis, not specified as acute or chronic (principal); Z87.891 Personal history of nicotine dependence
CPT/HCPCS: 99212; G0463

== ENCOUNTER 2018-08-27 12:05 | Day surgery (SDC) | payer BC ==
[~2018-08-27 12:05] MED LIST: Buffered Lidocaine 1% SYRIN* 1 ML/SYRINGE INTRADERM ONE; Lactated Ringers 1000 ML Bag* 1,000 ML IV SCH
[2018-08-27] MEDS ORDERED: fentaNYL* 50 MCG/ML 2 ML VIAL (100 MCG VIAL) ONE (17:03)
[2018-08-27] MEDS ORDERED: Ondansetron INJ* 2 MG/ML VIAL ONE (17:03)
[2018-08-27] MEDS ORDERED: Propofol* 10 MG/ML 20 ML BTL ONE (17:03)
[2018-08-27] MEDS ORDERED: Dexamethasone IV* 4 MG/ML 1 ML (4 MG) ONE (17:03)
[2018-08-27] MEDS ORDERED: Rocuronium* 10 MG/ML VIAL ONE (17:03)
[2018-08-27] MEDS ORDERED: Midazolam* 1 MG/ML 5 ML VIAL (5 MG) ONE (17:03)
[2018-08-27] MEDS ORDERED: DiMENhydriNATE IV* 50 MG/ML VIAL IV PUSH PRN (17:34)
[2018-08-27] MEDS ORDERED: fentaNYL* 50 MCG/ML 2 ML VIAL (100 MCG VIAL) IV PRN (17:34)
[2018-08-27] MEDS ORDERED: Naloxone* 0.4 MG/ML 1 ML VIAL IV PRN (17:34)
[2018-08-27] MEDS ORDERED: Ondansetron INJ* 2 MG/ML VIAL IV PRN (17:34)
[2018-08-27] MEDS ORDERED: Glycopyrrolate IV* 0.2 MG/ML 1 ML VIAL ONE (17:43)
[2018-08-27] MEDS ORDERED: Neostigmine Methylsulfate* 3 MG/3 ML SYRINGE ONE (17:46)
[2018-08-27 18:59] VITALS: BP 136/94
--- NOTE | 2018-08-29 03:50 | PRO ---
CC: Dr. Martin Owens * DATE OF PROCEDURE: 08/27/18 - ENDO PROCEDURE: EGD with biopsy. REFERRING PROVIDER: Dr. Martin Owens. INDICATION: The patient was seen in clinic with the reports of abdominal pain particularly in the epigastrium, which is worse with eating. PPI b.i.d. has been modestly helpful. Complains of intermittent nausea without vomiting. Reports frequent loose stools. Labs were notable for mild iron deficiency anemia. EGD and colonoscopy in January 2018 reportedly demonstrated grade II erosive esophagitis and bile reflux with gastritis. Colonoscopy demonstrated external and internal hemorrhoids, hyperplastic sigmoid polyp, and scattered diverticulosis. Random colon biopsies were negative. The patient has chronic oxycodone use for which she is scheduled for today upper endoscopy with anesthesia. MEDICATIONS: Given by Anesthesia. DESCRIPTION OF PROCEDURE: Full disclosure of risks was reviewed with the patient as detailed on the consent form. The patient was placed in the left lateral decubitus position and monitored with continuous pulse oximetry, capnography, interval blood pressure monitoring, and direct observation. A bite -block was placed between the patient's teeth. An adult gastroscope was then inserted into the patient's mouth and advanced down the esophagus into the stomach and into the distal duodenum. Findings and interventions are described below. FINDINGS: Esophagus was a tubular structure without rings. The GE junction was mildly irregular. Biopsies obtained. The distal esophagus demonstrated mild decrease in distensibility. Scope was then advanced into the stomach. The stomach was examined in the forward and retroflex views. There was mild diffuse gastric erythema. No erosions or ulcers. There was thickening in the antrum which was biopsied. Biopsy also obtained from antrum and sent for CLOtest. On retroflexion, there was noted to be thickening in the gastric cardia. This was biopsied as well. The scope was then advanced into the duodenum to at least the third portion. Duodenal mucosa was normal in appearance. Biopsies were obtained to rule out celiac disease. Scope was then withdrawn from the patient. The patient tolerated the procedure well and was recovered in the GI recovery area. IMPRESSION: 1. Complete upper endoscopy to distal duodenum. 2. Mildly irregular Z-line, biopsied. 3. Mild diffuse gastric erythema with thickening seen in the antrum and cardia , biopsied. 4. No explanation for the patient's symptoms readily identified on exam. FOLLOWUP: 1. Continue current acid suppression. 2. Await pathology. Thank you very much for this referral. [id number]/[facility] #: [id number] VALERIO
== END 2018-08-27 18:45 | disposition home or self-care (01) ==
LOC: ENDO 12:05
PROVIDERS: ATTEND Internal Medicine Gastroenterology
DX: K29.50 Unspecified chronic gastritis without bleeding (principal); K20.8 Other esophagitis; K31.89 Other diseases of stomach and duodenum; D50.9 Iron deficiency anemia, unspecified; R10.13 Epigastric pain; R19.7 Diarrhea, unspecified; I10 Essential (primary) hypertension; E78.5 Hyperlipidemia, unspecified; E03.9 Hypothyroidism, unspecified; F90.9 Attention-deficit hyperactivity disorder, unspecified type; Z91.018 Allergy to other foods; Z79.899 Other long term (current) drug therapy; Z79.890 Hormone replacement therapy
CPT/HCPCS: 87077; 88305; 88342; J1100; J2250; J2405; J2704; J2710; J3010

== ENCOUNTER 2019-01-29 17:42 | Emergency (ER) | payer BC ==
[2019-01-29 19:37] VITALS: BP 169/93
[2019-01-29 19:51] LABS: Influenza A Molecular NEGATIVE (Negative); Influenza B Molecular NEGATIVE (Negative)
--- NOTE | 2019-01-29 20:05 | UC ---
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 No known fever. Patient is concerned about influenza." -feels tired. dry signficinat cough - History of Current Complaint Chief Complaint: UCRespiratory Stated Complaint: COUGH/CHEST CONGESTION Time Seen by Provider: 01/29/19 19:51 Pain Intensity: 3 - Allergies/Home Medications Allergies/Adverse Reactions: Allergies Allergy/AdvReac Type Severity Reaction Status Date / Time banana Allergy Vomiting Verified 01/29/19 19:30 Home Medications: Home Medications Oxycodone TAB(NF) [Oxycodone HCl 10 MG] 10 mg PO Q6H PRN 01/29/19 [History Confirmed 01/29/19] PMH/Surg Hx/FS Hx/Imm Hx Previously Healthy: Yes Endocrine History: Thyroid Disease, Dyslipidemia Cardiovascular History: Hypertension - Surgical History Surgical History: Yes Surgery Procedure, Year, and Place: RT KNEE ACL AND MENISCUS REPAIR,2007. RT SHOULDER RTC REPAIR, 2017. COLON SURGERY (HEMMORHOIDS, 2018 - Family History Known Family History: Positive: Cardiac Disease, Other - CA, CVA - Social History Alcohol Use: None Alcohol Amount: 4-8 DRINKS Substance Use Type: Marijuana Substance Use Comment - Amount & Last Used: OCCASIONAL Smoking Status (MU): Former Smoker Length of Time of Smoking/Using Tobacco: six months only Have You Smoked in the Last Year: Yes - marijuana When Did the Patient Quit Smoking/Using Tobacco: ~1980s - Immunization History Most Recent Influenza Vaccination: none Most Recent Tetanus Shot: 2011 Most Recent Pneumonia Vaccination: none Vaccination Up to Date: Yes Review of Systems All Other Systems Reviewed And Are Negative: Yes Constitutional: Positive: Fatigue Skin: Positive: Negative. Negative: Rash Eyes: Positive: Negative ENT: Positive: Sore Throat, Ear Ache, Nasal Discharge Respiratory: Positive: Cough. Negative: Shortness Of Breath Cardiovascular: Positive: Negative. Negative: Palpitations, Chest Pain Gastrointestinal: Positive: Negative Genitourinary: Positive: Negative Motor: Positive: Negative Neurovascular: Positive: Negative Musculoskeletal: Positive: Arthralgia Neurological: Positive: Negative Psychological: Positive: Negative Is Patient Immunocompromised?: No Physical Exam Appearance: Well-Nourished, Ill-Appearing - mild Vital Signs: Initial Vital Signs Temp 97.9 F 01/29/19 19:27 Pulse 74 01/29/19 19:27 Resp 16 01/29/19 19:27 BP 169/93 01/29/19 19:27 Pulse Ox 98 01/29/19 19:27 Vital Signs Reviewed: Yes Eye Exam: Normal ENT Exam: Normal ENT: Positive: Pharynx normal, TMs normal, Uvula midline. Negative: TM bulging , TM dull, TM red, Sinus tenderness Dental Exam: Normal Neck exam: Normal Neck: Positive: Supple, Nontender, No Lymphadenopathy Respiratory: Positive: No respiratory distress, No accessory muscle use, Decreased breath sounds - mild decreased b/l, Rhonchi - right mild upper and lower. left clear, Other: - speaks full sentences. Negative: Crackles, Wheezing Cardiovascular Exam: Normal Cardiovascular: Positive: RRR, No Murmur Abdominal Exam: Normal Musculoskeletal Exam: Normal Neurological Exam: Normal Psychological Exam: Normal Skin Exam: Normal Skin: Negative: Rashes Respiratory Course/Dx - Course Course Of Treatment: CXR - aware that this is read by me and RAD will read in AM, should get a call if there is a discrepancy -possible small RML pneumonia -treat w/ augmentin, 1st dose here -pred and needs ventlin RF for prev dx of COPD he reorts. -disc risks of pred. has had in past w/o any issues - Differential Dx/Diagnosis Differential Diagnosis/HQI/PQRI: Asthma, Bronchitis, Influenza, Lower Resp Infection Provider Diagnosis: Pneumonia Discharge ED - Sign-Out/Discharge Documenting (check all that apply): Patient Departure All imaging exams completed and their final reports reviewed: No - Discharge Plan Condition: Stable Disposition: HOME Prescriptions: Albuterol HFA INHALER* [Ventolin HFA Inhaler*] 2 puff INH Q4H PRN 14 Days #1 mdi PRN Reason: Cough Amoxicillin/Clavulanate TAB* [Augmentin TAB 875*] 875 mg PO BID 10 Days #19 tab methylPREDNISolone [Medrol Dosepak 4 MG*] 4 mg PO DAILY #1 nora Patient Education Materials: Pneumonia (ED) Referrals: Bandar Benitez MD [Primary Care Provider] - Additional Instructions: -There may be a small pneumonia on the right. The official radiology report will be done in sia morning. You have received your 1st dose of augmentin here. If the xry is not showing a pneumonia, you should get a call to stop sia antibiotic. But you can continue with the prednisone and ventolin inhaler. -It is recommended that you take a probiotic daily while you are on antibiotics. A few common brands that you can buy over the counter are colon health, align and florastor. These can help prevent a colon infection called c diff that can be associated with antibiotic use. -We talked about the potential side effects of prednisone including but not limited to increased energy/decreased sleep, stomach upset, irritability, hunger , elevated blood sugars and blood pressures, problems with your adrenal glands and cut off of the blood supply going to your hip. The latter symptoms are more typical of ocean transportation intermediary or frequent use of steroids. -Make sure to follow up on the elevated blood pressure from tonight as well. -If the xray does officially reveal a pneumonia, make sure to get a follow up chest xray in 4-6 wks regardless if your symptoms have resolved. - Billing Disposition and Condition Condition: STABLE Disposition: Home
[2019-01-29] MEDS ORDERED: Amoxicillin/Clavulanate TAB* 875 MG PO ONE (20:49)
--- NOTE | 2019-01-30 15:04 | UC ---
- Progress Note Progress Note: Final radiologist reading for chest x-ray from January 29, 2019 comes back as right middle lobe atelectasis versus infiltrate. Provider interpretation same date was a right middle lobe infiltrate therefore there is no discrepancy. Course/Dx - Diagnoses Provider Diagnoses: Pneumonia Discharge ED - Sign-Out/Discharge Documenting (check all that apply): Patient Departure All imaging exams completed and their final reports reviewed: Yes - Discharge Plan Condition: Stable Disposition: HOME Prescriptions: Albuterol HFA INHALER* [Ventolin HFA Inhaler*] 2 puff INH Q4H PRN 14 Days #1 mdi PRN Reason: Cough Amoxicillin/Clavulanate TAB* [Augmentin TAB 875*] 875 mg PO BID 10 Days #19 tab methylPREDNISolone [Medrol Dosepak 4 MG*] 4 mg PO DAILY #1 nora Patient Education Materials: Pneumonia (ED) Referrals: Bandar Benitez MD [Primary Care Provider] - Additional Instructions: -There may be a small pneumonia on the right. The official radiology report will be done in sia morning. You have received your 1st dose of augmentin here. If the xry is not showing a pneumonia, you should get a call to stop sia antibiotic. But you can continue with the prednisone and ventolin inhaler. -It is recommended that you take a probiotic daily while you are on antibiotics. A few common brands that you can buy over the counter are colon health, align and florastor. These can help prevent a colon infection called c diff that can be associated with antibiotic use. -We talked about the potential side effects of prednisone including but not limited to increased energy/decreased sleep, stomach upset, irritability, hunger , elevated blood sugars and blood pressures, problems with your adrenal glands and cut off of the blood supply going to your hip. The latter symptoms are more typical of terminal clerk or frequent use of steroids. -Make sure to follow up on the elevated blood pressure from tonight as well. -If the xray does officially reveal a pneumonia, make sure to get a follow up chest xray in 4-6 wks regardless if your symptoms have resolved. - Billing Disposition and Condition Condition: STABLE Disposition: Home
== END 2019-01-29 21:01 | disposition home or self-care (01) ==
LOC: UCCORT 17:42
DX: J18.9 Pneumonia, unspecified organism (principal); I10 Essential (primary) hypertension; Z91.018 Allergy to other foods; Z87.891 Personal history of nicotine dependence
CPT/HCPCS: 71046; 99212; A9270-GY; G0463

== ENCOUNTER 2019-02-05 16:26 | Emergency (ER) | payer BC ==
[2019-02-05 16:49] VITALS: BP 140/93
--- NOTE | 2019-02-05 17:28 | UC ---
Skin Complaint HPI - HPI Summary HPI Summary: Per transport nurse: "Right upper thigh swelling, "knot" onset 02/02/19. Pt had self injected IM testosterone the day before No known injury." -here w his -he was seen 01/29 by myself and dx'd w/ Rt pneumonia. treated w/ augmentin and prednisone. he is still tired. cough is improving. he has more energy and does too much and then get tired again. -no fevers/chills. -sudden onset of sx today. injection was 02/01/19. not red. -he is still on augmentin. -Dad had DVT but unaware if he was ever tested for genetic pre-disposition. ANd CVA -denies CP/SOB. - History of Current Complaint Chief Complaint: UCUpperExtremity Time Seen by Provider: 02/05/19 17:01 Stated Complaint: RIGHT LEG SWELLING Pain Intensity: 3 - Allergy/Home Medications Allergies/Adverse Reactions: Allergies Allergy/AdvReac Type Severity Reaction Status Date / Time banana Allergy Vomiting Verified 02/05/19 16:33 PMH/Surg Hx/FS Hx/Imm Hx Previously Healthy: Yes Endocrine History: Dyslipidemia - Surgical History Surgical History: Yes Surgery Procedure, Year, and Place: RT KNEE ACL AND MENISCUS REPAIR,2007. RT SHOULDER RTC REPAIR, 2017. COLON SURGERY (HEMMORHOIDS, 2018 - Family History Known Family History: Positive: Cardiac Disease, Other - CA, CVA. Dad w/ DVT - unknown if genetic testing was done - Social History Alcohol Use: 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 Alcohol Amount: 4-8 DRINKS Substance Use Type: Marijuana Substance Use Comment - Amount & Last Used: OCCASIONAL- last was 2018 Smoking Status (MU): Former Smoker Length of Time of Smoking/Using Tobacco: six months only Have You Smoked in the Last Year: Yes - marijuana When Did the Patient Quit Smoking/Using Tobacco: ~1980s - Immunization History Most Recent Influenza Vaccination: none Most Recent Tetanus Shot: 2011 Most Recent Pneumonia Vaccination: none Vaccination Up to Date: Yes Review of Systems All Other Systems Reviewed And Are Negative: Yes Constitutional: Positive: Fatigue Skin: Positive: Negative Eyes: Positive: Negative ENT: Positive: Negative Respiratory: Positive: Cough - resolving pneumonia Cardiovascular: Positive: Negative. Negative: Palpitations, Chest Pain Gastrointestinal: Positive: Negative. Negative: Abdominal Pain, Vomiting, Diarrhea, Nausea Genitourinary: Positive: Negative Motor: Positive: Negative Neurovascular: Positive: Negative Musculoskeletal: Positive: Other: - rt thigh pain/swelling Neurological: Positive: Negative Psychological: Positive: Negative Is Patient Immunocompromised?: No Physical Exam Triage Information Reviewed: Yes Appearance: Well-Nourished, Ill-Appearing - mildly so Vital Signs: Initial Vital Signs Temp 98.9 F 02/05/19 16:42 Pulse 83 02/05/19 16:42 Resp 18 02/05/19 16:42 BP 140/93 02/05/19 16:42 Pulse Ox 98 02/05/19 16:42 Vital Signs Reviewed: Yes Eye Exam: Normal ENT Exam: Normal Neck exam: Normal Neck: Positive: Supple, Nontender, No Lymphadenopathy Respiratory Exam: Normal Respiratory: Positive: Lungs clear, Normal breath sounds, No respiratory distress, No accessory muscle use. Negative: Crackles, Rhonchi, Stridor, Wheezing Cardiovascular Exam: Normal Cardiovascular: Positive: RRR Abdominal Exam: Normal Musculoskeletal: Positive: Other: - right anterior distal 2/3 of thigh with tenderness and some swelling, warm to touch but without erythema or dc. It is distal to testosterone injection site that is visible but nopt inflammed or with erythema. no dc. tender. Neurological Exam: Normal Neurological: Positive: Muscle Tone Normal Psychological Exam: Normal Skin: Positive: Other - see above Course/Dx - Course Course Of Treatment: Unable to confidently rule out DVT. I am concerned about + Fhx DVT and higher risk bc he is on testosterone. It i snot consistent with cellulitis. he is on augmentin. It is not erythematous but there is tenderness and warmth. They agree to go directly to [facility] ER [facility]. we disc risks of PE and fatality associated with this often. Theyw ill follow up with PCP. in transition to a new practice but agrees to call old PCP for f/u -reassured penumonia sx take 4-6 wks to resolve and needs to cont to rest despite gaining more nergy. they agree. -in pain my acct for high BP. recommend f/u - Differential Diagnoses - Skin Complaint Differential Diagnoses: Other - cellulitis, DVT - Diagnoses Provider Diagnosis: Leg pain, anterior Discharge ED - Sign-Out/Discharge Documenting (check all that apply): Patient Departure All imaging exams completed and their final reports reviewed: No Studies - Discharge Plan Condition: Stable Disposition: HOME-RECOMMEND TO ED Referrals: No Primary Care Phys,NOPCP [Primary Care Provider] - Additional Instructions: We talked about sia fact that you are on antibiotics and the leg does not look infected or like a cellulitis. And you are already on augmentin and unlikely to have an infection. There is a concern for a blood clot b/c of sudden onset, warmth to the skin and the fact that your Dad had a blood clot (and you are uncertain of any genetic testing that may have been done). Therefore, I recommend that you go to the ER for evaluation and recommend and ultrasound to be done to rule out a blood clot. - Billing Disposition and Condition Condition: STABLE Disposition: Home-Recommend to ED
== END 2019-02-05 17:40 | disposition home health service (06) ==
LOC: UCCORT 16:26
DX: M79.651 Pain in right thigh (principal); M79.89 Other specified soft tissue disorders; J40 Bronchitis, not specified as acute or chronic; Z87.891 Personal history of nicotine dependence; Z91.018 Allergy to other foods
CPT/HCPCS: 99212; G0463

== ENCOUNTER 2019-06-18 15:06 | Emergency (ER) | payer BC ==
[2019-06-18 18:28] VITALS: BP 143/89
--- NOTE | 2019-06-18 18:39 | UC ---
Respiratory Complaint HPI - HPI Summary HPI Summary: 5 day hx of cough, congestion, myalgias, headache and malaise. Uncertain re fever. He has had a hx of pneumonia, hypertension. - History of Current Complaint Chief Complaint: UCRespiratory Stated Complaint: ST, CHEST CONGESTION Time Seen by Provider: 06/18/19 18:31 Hx Obtained From: Patient Onset/Duration: Gradual Onset, Lasting Days Timing: Constant Severity Initially: Mild Severity Currently: Moderate Pain Intensity: 0 Character: Cough: Nonproductive Aggravating Factors: Deep Breaths, Recumbent Position Alleviating Factors: OTC Meds Associated Signs And Symptoms: Positive: Chills, Sinus Discomfort - Risk Factors Pulmonary Embolism Risk Factors: Negative Cardiac Risk Factors: Hypertension, Elevated Lipids Pseudomonas Risk Factors: Negative Tuberculosis Risk Factors: Negative - Allergies/Home Medications Allergies/Adverse Reactions: Allergies Allergy/AdvReac Type Severity Reaction Status Date / Time banana Allergy Vomiting Verified 06/18/19 18:23 Home Medications: Home Medications Atorvastatin* [Lipitor 10 MG*] 20 mg PO QPM 06/19/17 [History Confirmed 06/18/19 ] Levothyroxine TAB* [Synthroid 25 MCG TAB*] 50 mcg PO QAM 06/19/17 [History Confirmed 06/18/19] Losartan TAB* [Cozaar TAB*] 100 mg PO QPM 06/19/17 [History Confirmed 06/18/19] Omeprazole 40 mg PO BID 08/20/18 [History Confirmed 06/18/19] Testosterone Cypionate [Testone Cik] 200 mg IM .[id number] 11/26/18 [History Confirmed 06/18/19] Albuterol HFA INHALER* [Ventolin HFA Inhaler*] 2 puff INH Q4H PRN 14 Days #1 mdi 01/29/19 [Rx Confirmed 06/18/19] Oxycodone TAB(NF) [Oxycodone HCl 10 MG] 10 mg PO Q4H PRN 01/29/19 [History Confirmed 06/18/19] amLODIPine TAB* [Norvasc 5 mg TAB*] 5 mg PO DAILY 03/30/19 [History Confirmed ] Amphetamine MIXED SALTS TAB* [Adderall TAB*] 10 mg DAILY 06/18/19 [History Confirmed 06/18/19] PMH/Surg Hx/FS Hx/Imm Hx Endocrine History: Hypothyroidism Cardiovascular History: Hypertension Respiratory History: Asthma GI/ History: Gastroesophageal Reflux Psychological History: Other - attention deficint - Surgical History Surgical History: Yes Surgery Procedure, Year, and Place: RT KNEE ACL AND MENISCUS REPAIR,2008. RT SHOULDER RTC REPAIR, 2017. COLON SURGERY (HEMMORHOIDS, 2018) - Family History Known Family History: Positive: Cardiac Disease, Other - CA, CVA. Dad w/ DVT - unknown if genetic testing was done - Social History Occupation: Employed Full-time Lives: With Family Alcohol Use: None Alcohol Amount: 3 DRINKS Substance Use Type: None Substance Use Comment - Amount & Last Used: OCCASIONAL- last was 2018 Smoking Status (MU): Former Smoker Length of Time of Smoking/Using Tobacco: six months only Have You Smoked in the Last Year: Yes - marijuana When Did the Patient Quit Smoking/Using Tobacco: ~ - Immunization History Most Recent Influenza Vaccination: none Most Recent Tetanus Shot: 2011 Most Recent Pneumonia Vaccination: none Vaccination Up to Date: Yes Review of Systems All Other Systems Reviewed And Are Negative: Yes Constitutional: Positive: Fatigue Skin: Positive: Negative Eyes: Positive: Negative ENT: Positive: Sore Throat, Ear Ache Respiratory: Positive: Shortness Of Breath, Cough Cardiovascular: Positive: Negative Gastrointestinal: Positive: Negative Genitourinary: Positive: Negative Motor: Positive: Negative Neurovascular: Positive: Negative Musculoskeletal: Positive: Negative, Myalgia Neurological/Mental Status: Positive: Headache Psychological: Positive: Negative, Other - occasional use of stimulants, not daily Is Patient Immunocompromised?: No Physical Exam Triage Information Reviewed: Yes Appearance: Ill-Appearing - looks mildly unwell Vital Signs: Initial Vital Signs Temp 98.6 F 06/18/19 18:25 Pulse 76 06/18/19 18:25 Resp 20 06/18/19 18:25 BP 143/89 06/18/19 18:25 Pulse Ox 100 06/18/19 18:25 Eye Exam: Normal Eyes: Positive: Conjunctiva Clear ENT: Positive: Pharyngeal erythema, TMs normal Neck: Positive: Supple, Nontender, No Lymphadenopathy Respiratory: Positive: No respiratory distress, Decreased breath sounds, Rhonchi. Negative: Wheezing Cardiovascular: Positive: RRR, No Murmur Abdomen Description: Positive: Nontender, No Organomegaly, Soft Musculoskeletal Exam: Normal Neurological Exam: Normal Psychological Exam: Normal Skin Exam: Normal Diagnostics - Laboratory Lab Results: ifnluenza A and B negative. - Radiology No standard instances Radiology Interpretation Completed By: ED Physician - normal chest xray--no infiltrate. Respiratory Course/Dx - Course Course Of Treatment: continue symptomatic treatment of viral illness--most consistent with flu - Differential Dx/Diagnosis Differential Diagnosis/HQI/PQRI: Bronchitis, Influenza, Lower Resp Infection, Sinusitis Provider Diagnosis: Viral syndrome Discharge ED - Sign-Out/Discharge Documenting (check all that apply): Patient Departure All imaging exams completed and their final reports reviewed: No Studies - Discharge Plan Condition: Stable Disposition: HOME Patient Education Materials: Viral Syndrome (ED) Referrals: Asmita Calvin MD [Primary Care Provider] - Additional Instructions: As discussed, your symptoms are most consistent with a flu like illness. Our radiologist will review your xray in the morning; if a change of treatment is indicated based on that, you will receive a phone call. I would anticipate improvement in symptoms with several more days of increased fluids, rest and healthy eating. - Billing Disposition and Condition Condition: STABLE Disposition: Home
[2019-06-18 19:00] LABS: Influenza A Molecular Negative (Negative); Influenza B Molecular Negative (Negative)
== END 2019-06-18 19:24 | disposition home or self-care (01) ==
LOC: UCCORT 15:06
DX: B34.9 Viral infection, unspecified (principal); R05 Cough; R09.89 Other specified symptoms and signs involving the circulatory and respiratory systems; M79.10 Myalgia, unspecified site; R51 Headache; R53.81 Other malaise; I10 Essential (primary) hypertension; E03.9 Hypothyroidism, unspecified; J45.909 Unspecified asthma, uncomplicated; Z79.890 Hormone replacement therapy; Z91.018 Allergy to other foods; Z87.01 Personal history of pneumonia (recurrent); Z79.899 Other long term (current) drug therapy; Z87.891 Personal history of nicotine dependence
CPT/HCPCS: 71046; 99211; G0463

== ENCOUNTER 2019-07-06 17:20 | Emergency (ER) | payer BC ==
--- NOTE | 2019-07-06 18:07 | UC ---
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 he was seen here several weeks ago, treated symptomatically for a viral illness, neg chest xray, and he improved. He has been checking his temp and is not febrile, and he is not short of breath. Denies hx of asthma, but he does have an albuterol inhaler which he has not used. He has some diffuse aches and fatigue. He has not used pain medications. He agrees to a telehealth visit rather than an on-site visit. 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 Lives with his , who is not ill. [facility]: Reports: Hx Thyroid Disease, Hx Anemia Denies: Hx Diabetes Cardiovascular History: Reports: Hx Hypertension Denies: Hx Pacemaker/ICD, Other Cardiovascular Problems/Disorders Respiratory History: Reports: Hx Chronic Obstructive Pulmonary Disease (COPD), Other Respiratory Problems/Disorders - RESCUE INHALER FOR EXERCISE INDUCED SOB Comment Only: Hx Asthma - INHALER FOR DECREASED LUNG FUNCTION- EX-SMOKER GI History: Reports: Hx Gastroesophageal Reflux Disease, Hx Irritable Bowel, Hx Ulcer - gastric Denies: Other GI Disorders Musculoskeletal History: Reports: Other Musculoskeletal History - HX OF COMPRESSED VERTEBRAE LOWER BACK Sensory History: Reports: Hx Contacts or Glasses - GLASSES Denies: Hx Hearing Aid Opthamlomology History: Reports: Hx Contacts or Glasses - GLASSES Neurological History: Reports: Other Neuro Impairments/Disorders - L-SPINE DISC TOUBLE Psychiatric History: Reports: Hx Depression - no meds Denies: Hx Panic Disorder - Surgical History Surgery Procedure, Year, and Place: RT KNEE ACL AND MENISCUS REPAIR,2008. RT SHOULDER RTC REPAIR, 2017. COLON SURGERY (HEMMORHOIDS, 2018) Hx Anesthesia Reactions: No - Immunization History Date of Tetanus Vaccine: Unsure Date of Influenza Vaccine: no Infectious Disease History: No - Family History Known Family History: Positive: Cardiac Disease, Other - CA, CVA. Dad w/ DVT - unknown if genetic testing was done - Social History Occupation: Employed Full-time Lives: With Family Alcohol Use: 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 Alcohol Amount: 3 DRINKS Substance Use Type: Reports: Marijuana Substance Use Comment - Amount & Last Used: medical marijuana Smoking Status (MU): Former Smoker Length of Time of Smoking/Using Tobacco: six months only Have You Smoked in the Last Year: Yes - marijuana UC Telehealth ROS All Other Systems Reviewed And Are Negative: Yes Positive: Fatigue Eyes: Negative Positive: Ear Ache Negative: Palpitations, Chest Pain Positive: Cough. Negative: Shortness Of Breath Gastrointestinal: Negative Genitourinary: Negative Positive: Myalgia Skin: Negative Neurological/Mental Status: Negative Psychological: Normal Telehealth PE Telehealth Physical Exam: Audio interview via telephone. He is able to speak, but does have an occasional cough. he sounds in no acute distress, but expresses appropriate concern. He favors not having a convenient care visit at this time. [facility] Course/Dx Assessment/Plan: His focus sounds primarily in the sinuses, with drainage triggering a cough. Rx sent for augmentin and albuterol with spacing device, which he will use twice daily. We reviewed side effects of augmentin and the value of using a spacing device with albuterol. Advised twice daily use of albuterol until cough improves. He will follow up if not improving in 2 to 3 days, develps a fever or shortness of breath Provider Diagnoses: Sinusitis [facility] Disposition Provider Recommendation for Treatment: Home/Supportive Care Telehealth Visit: Patient Consented Verbally to Telehealth Visit Telehealth Patient Statement: The patient should understand that they are communicating with their provider via a secure communication platform and that all the same privacy and confidentiality rules apply. They will also be responsible for copayments or coinsurances that apply to any Telehealth visit. Patient Identifiers: 2 Patient Identifiers Verified for Telehealth Visit Telehealth Visit Start Time: 17:55 Telehealth Visit End Time: 18:10 Telehealth Provider Attestation: The above services were appropriate to provide in a Telehealth setting. - Attestation Statements Document Initiated by Dianna: No
== END 2019-07-06 18:30 | disposition home or self-care (01) ==
LOC: UCCORT 17:20
DX: J32.9 Chronic sinusitis, unspecified (principal); M79.10 Myalgia, unspecified site; R53.83 Other fatigue; I10 Essential (primary) hypertension; J44.9 Chronic obstructive pulmonary disease, unspecified; K21.9 Gastro-esophageal reflux disease without esophagitis; Z79.899 Other long term (current) drug therapy; Z87.891 Personal history of nicotine dependence
CPT/HCPCS: 99212; G0463; Q3014

== ENCOUNTER 2019-07-31 15:14 | Emergency (ER) | payer BC ==
[2019-07-31 15:30] VITALS: BP 123/86
[2019-07-31] MEDS ORDERED: Tetan/Diph/Pertus SYR(Tdap)* 0.5 ML SYR(BOOSTRIX) use SYR contains LATEX IM ONE (15:31)
--- NOTE | 2019-07-31 15:35 | UC ---
Hand/Wrist HPI - HPI Summary HPI Summary: 49-year-old male comes in with a chief complaint of a puncture wound to the palm of the left hand in the thenar eminence. This happened a couple hours ago. Patient does not believe he is up-to-date with his tetanus. He was wearing rubber gloves at the time. Does hurt when he moves his thumb. Pain is less when he does not move his thumb. - History Of Current Complaint Chief Complaint: UCGeneralIllness Stated Complaint: PUNCTURE WOUND LEFT HAND Time Seen by Provider: 07/31/19 15:26 Pain Intensity: 6 - Allergies/Home Medications Allergies/Adverse Reactions: Allergies Allergy/AdvReac Type Severity Reaction Status Date / Time banana Allergy Vomiting Verified 07/31/19 15:19 Home Medications: Home Medications Atorvastatin* [Lipitor 10 MG*] 20 mg PO QPM 06/19/17 [History Confirmed 07/31/19 ] Levothyroxine TAB* [Synthroid 25 MCG TAB*] 50 mcg PO QAM 06/19/17 [History Confirmed 07/31/19] Losartan TAB* [Cozaar TAB*] 100 mg PO QPM 06/19/17 [History Confirmed 07/31/19] Omeprazole 40 mg PO BID 08/20/18 [History Confirmed 07/31/19] Testosterone Cypionate [Testone Cik] 200 mg IM .[id number] 11/26/18 [History Confirmed 07/31/19] Oxycodone TAB(NF) [Oxycodone HCl 10 MG] 10 mg PO Q4H PRN 01/29/19 [History Confirmed 07/31/19] amLODIPine TAB* [Norvasc 5 mg TAB*] 5 mg PO DAILY 03/30/19 [History Confirmed ] Amphetamine MIXED SALTS TAB* [Adderall TAB*] 10 mg DAILY 06/18/19 [History Confirmed 07/31/19] Albuterol HFA INHALER* [Ventolin HFA Inhaler*] 2 puff INH Q4H PRN 14 Days #1 mdi 07/06/19 [Rx Confirmed 07/31/19] Inhaler, Assist Devices [Space Chamber Plus] 1 each MC QID #1 spacer 07/06/19 [ Rx Confirmed 07/31/19] Lipase/Protease/Amylase [Creon 6000 Unit] 1 cap PO AC 07/06/19 [History Confirmed 07/31/19] Cephalexin CAP* [Keflex CAP*] 500 mg PO QID #28 cap 07/31/19 [Rx] PMH/Surg Hx/FS Hx/Imm Hx Previously Healthy: Yes Endocrine History: Hypothyroidism, Dyslipidemia Cardiovascular History: Hypertension GI/ History: Gastroesophageal Reflux - Surgical History Surgical History: Yes Surgery Procedure, Year, and Place: RT KNEE ACL AND MENISCUS REPAIR,2008. RT SHOULDER RTC REPAIR, 2017. COLON SURGERY (HEMMORHOIDS, 2018) - Family History Known Family History: Positive: None, Cardiac Disease, Other - CA, CVA. Dad w/ DVT - unknown if genetic testing was done - Social History Alcohol Use: 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 Alcohol Amount: 3 DRINKS Substance Use Type: Other Substance Use Comment - Amount & Last Used: medical marijuana Smoking Status (MU): Former Smoker Length of Time of Smoking/Using Tobacco: six months only Have You Smoked in the Last Year: Yes - marijuana When Did the Patient Quit Smoking/Using Tobacco: ~ - Immunization History Most Recent Influenza Vaccination: none Most Recent Tetanus Shot: 2011 Most Recent Pneumonia Vaccination: none Vaccination Up to Date: Yes Review of Systems All Other Systems Reviewed And Are Negative: Yes Constitutional: Positive: Negative Skin: Positive: Other - see hpi Eyes: Positive: Negative ENT: Positive: Negative Respiratory: Positive: Negative Cardiovascular: Positive: Negative Motor: Positive: Negative Neurovascular: Positive: Negative Musculoskeletal: Positive: Other: - see hpi Neurological/Mental Status: Positive: Negative Psychological: Positive: Negative Is Patient Immunocompromised?: No Physical Exam Triage Information Reviewed: Yes Appearance: Well-Appearing, No Pain Distress, Well-Nourished Vital Signs: Initial Vital Signs Temp 98.1 F 07/31/19 15:21 Pulse 98 07/31/19 15:21 Resp 16 07/31/19 15:21 BP 123/86 07/31/19 15:21 Pulse Ox 97 07/31/19 15:21 Vital Signs Reviewed: Yes Eye Exam: Normal Eyes: Positive: Conjunctiva Clear Neck: Positive: Supple Respiratory: Positive: No respiratory distress Neurological: Positive: Alert Psychological: Positive: Age Appropriate Behavior Skin: Positive: Other - Patient has 2 [id number] puncture wounds in the thenar eminence of the palm of the left hand. The area is tender to palpation. Patient has full range of motion, although it increases the pain. No decreased sensation normal capillary refill. Hand/Wrist Course/Dx - Course Course Of Treatment: Patient received his T dap here today in clinic. We'll treat with Keflex prophylactically. We discussed getting an x-ray to evaluate for foreign body. Patient declined at this time. Let the patient know if he is getting worse with signs of infection he needs to get reevaluated again right away either with the hand surgeon or in the emergency department. - Differential Dx/Diagnosis Provider Diagnosis: Puncture wound of left hand Discharge ED - Sign-Out/Discharge Documenting (check all that apply): Patient Departure All imaging exams completed and their final reports reviewed: No Studies - Discharge Plan Condition: Stable Disposition: HOME Prescriptions: Cephalexin CAP* [Keflex CAP*] 500 mg PO QID #28 cap Patient Education Materials: Puncture Wound (ED) Referrals: Asmita Calvin MD [Primary Care Provider] - Daya Hicks MD [Medical Doctor] - Rudy Carmen MD [Medical Doctor] - Additional Instructions: FOLLOW UP WITH THE ORTHOPEDIC HAND SPECIALIST IF NOT COMPLETELY IMPROVED. Do received your T dap immunization today (tetanus diphtheria pertussis). GO TO THE EMERGENCY DEPARTMENT IF WORSE; SPREADING INFECTION, FEVER, YOU FEEL ILL OR ANY QUESTIONS OR CONCERNS. - Billing Disposition and Condition Condition: STABLE Disposition: Home
== END 2019-07-31 15:45 | disposition home or self-care (01) ==
LOC: UCCORT 15:14
DX: S61.432A Puncture wound without foreign body of left hand, initial encounter (principal); W26.9XXA Contact with unspecified sharp object(s), initial encounter; Y92.9 Unspecified place or not applicable; Z23 Encounter for immunization; E03.9 Hypothyroidism, unspecified; E78.5 Hyperlipidemia, unspecified; I10 Essential (primary) hypertension; K21.9 Gastro-esophageal reflux disease without esophagitis; Z79.890 Hormone replacement therapy; Z79.899 Other long term (current) drug therapy; Z91.018 Allergy to other foods
CPT/HCPCS: 90471; 90715; 99212; G0463